=== PATIENT | male | born 1950 | race Caucasian/White ===

== ENCOUNTER → 2018-04-18 | Outpatient (CLI) | payer MEDICARE, OTHER ==
[2018-04-18 11:31] LABS: BASOPHILS ABSOLUTE AUTO 0.04 K/mm3 (0.00-0.23); BASOPHILS PERCENT AUTO 1 % (0-2); EOSINOPHILS PERCENT AUTO 4 % (0-6); Hematocrit 46.4 % (37.0-53.0); Hemoglobin 15.3 g/dL (13.5-17.5); IMMATURE GRAN ABSOLUTE AUTO 0.06 K/mm3 (0.00-0.10); IMMATURE GRAN PERCENT AUTO 1 % (0-1); LYMPHOCYTES ABSOLUTE AUTO 1.34 K/mm3 (0.84-5.20); LYMPHOCYTES PERCENT AUTO 15 % (21-46); MONOCYTES ABSOLUTE AUTO 1.04 K/mm3 (0.16-1.47); MONOCYTES PERCENT AUTO 12 % (4-13); Mean Corpuscular HGB 29.9 pg (26.0-34.0); Mean Corpuscular Volume 91 fL (80-100); Mean Platelet Volume 10.6 fL (9.1-12.4); NEUTROPHILS PERCENT AUTO 68 % (41-73); Platelet Count 233 K/mm3 (150-400); RDW Coefficient Variation 13.5 % (11.7-14.2); RDW Standard Deviation 45.1 fL (35.1-46.3); Red Blood Cell Count 5.12 M/mm3 (4.30-5.90); White Blood Cell Count 8.68 K/mm3 (4.00-11.30)
== END ==
LOC: LAB SHORT 10:49 → LAB UCHC 10:49
PROVIDERS: Internal Medicine Rheumatology
DX: M05.9 Rheumatoid arthritis with rheumatoid factor, unspecified (principal)
CPT/HCPCS: 36415; 84450; 85025; 85651

== ENCOUNTER 2020-06-01 12:32 | Day surgery (SDC) | payer OTHER ==
[~2020-06-01] VITALS: Ht 182.9 cm; Wt 82.6 kg
[~2020-06-01 12:32] MED LIST: AMLO10 PO; BUDESONIDE-FO10.2 G2 INH; Cialis20 MG PO; FAMO20 PO; FLUT.05NI; HYDPAM50 PO; HYDSUL200 PO; NAPR220 PO; PSEU120ER PO; SYMBICORT 160-4.6 GM INH; TIOT18 INH; ZOLP5 PO
[2020-06-01] MEDS ORDERED: VITAMIN D32000 UNI1 (12:54)
[2020-06-01] MEDS ORDERED: ZADITOR5 M1 (12:55)
--- NOTE | 2020-06-01 13:11 | NUR ---
06/01/20 1311 Radha Barnett 1 TRY RIGHT HAND MOVED 2 TRY RIGHT HAND GOOD CML
== END 2020-06-01 14:39 | disposition home or self-care (01) ==
LOC: ORSCSDS 12:32
PROVIDERS: Surgery
PROC: 0DBL8ZX Excision of Transverse Colon, Via Natural or Artificial Opening Endoscopic, Diagnostic (ICD-10-PCS; principal; 2020-06-01 13:45)
PROC: 0DBM8ZX Excision of Descending Colon, Via Natural or Artificial Opening Endoscopic, Diagnostic (ICD-10-PCS; principal; 2020-06-01 13:45)
DX: K62.5 Hemorrhage of anus and rectum (principal); D12.3 Benign neoplasm of transverse colon; D12.4 Benign neoplasm of descending colon; K64.8 Other hemorrhoids; K57.30 Diverticulosis of large intestine without perforation or abscess without bleeding; I10 Essential (primary) hypertension; J44.9 Chronic obstructive pulmonary disease, unspecified; E78.5 Hyperlipidemia, unspecified; F17.210 Nicotine dependence, cigarettes, uncomplicated
CPT/HCPCS: 88305; J2704; J7120

== ENCOUNTER → 2021-07-16 | Outpatient (CLI) | payer OTHER ==
[~2021-07-16] MED LIST changes: +VITAMIN D32000 UNI1; +ZADITOR5 M1
== END | disposition home or self-care (01) ==
LOC: LAB SHORT 17:00
DX: N30.01 Acute cystitis with hematuria (principal)
CPT/HCPCS: 87077; 87086; 87186

== ENCOUNTER → 2021-08-29 | Outpatient (CLI) | payer OTHER | LOC: LAB SHORT 11:32 | DX: D48.5 Neoplasm of uncertain behavior of skin (principal); Q82.8 Other specified congenital malformations of skin | CPT/HCPCS: 88305 ==

== ENCOUNTER → 2022-02-06 | Outpatient (CLI) | payer MEDICARE, OTHER | END | disposition home or self-care (01) | LOC: LAB 08:49 → LAB SHORT 08:49 → PLD 08:49 | DX: D48.5 Neoplasm of uncertain behavior of skin (principal) | CPT/HCPCS: 88305 ==

== ENCOUNTER 2022-05-16 10:56 | Inpatient (IN) | payer OTHER ==
[~2022-05-16] VITALS: Ht 182.9 cm; Wt 82.5 kg
[2022-05-16 11:36] LABS: BASOPHILS ABSOLUTE AUTO 0.03 K/mm3 (0.00-0.23); BASOPHILS PERCENT AUTO 0 % (0-2); EOSINOPHILS PERCENT AUTO 7 % (0-6); Hematocrit 47.7 % (37.0-53.0); IMMATURE GRAN ABSOLUTE AUTO 0.05 K/mm3 (0.00-0.10); IMMATURE GRAN PERCENT AUTO 1 % (0-1); LYMPHOCYTES ABSOLUTE AUTO 0.78 K/mm3 (0.84-5.20); LYMPHOCYTES PERCENT AUTO 11 % (21-46); MONOCYTES ABSOLUTE AUTO 0.69 K/mm3 (0.16-1.47); MONOCYTES PERCENT AUTO 9 % (4-13); Mean Corpuscular HGB 32.3 pg (26.0-34.0); Mean Corpuscular HGB Conc 33.5 g/dL (31.5-36.5); Mean Corpuscular Volume 96 fL (80-100); Mean Platelet Volume 9.9 fL (9.1-12.4); NEUTROPHILS ABSOLUTE AUTO 5.41 K/mm3 (1.96-9.15); NEUTROPHILS PERCENT AUTO 73 % (41-73); Platelet Count 188 K/mm3 (150-400); RDW Coefficient Variation 13.8 % (11.7-14.2); RDW Standard Deviation 49.1 fL (35.1-46.3); Red Blood Cell Count 4.96 M/mm3 (4.30-5.90); White Blood Cell Count 7.46 K/mm3 (4.00-11.30)
[2022-05-16 11:57] LABS: Albumin, Blood 3.8 g/dL (3.4-5.0); Albumin/Globulin Ratio 1.2 (0.8-1.8); Bilirubin, Total 0.5 mg/dL (0.1-1.0); Bun/Creatinine Ratio 20.1 (12.0-20.0); Calcium, Blood 9.5 mg/dL (8.5-10.1); Creatinine, Blood 0.84 mg/dL (0.60-1.20); Globulin, Blood 3.3 g/dL (2.2-4.0); Potassium, Blood 4.5 mmol/L (3.5-5.5); Total Protein, Blood 7.1 g/dL (6.4-8.2)
[2022-05-16] MEDS ORDERED: GUAI600T33 PO (11:59)
[2022-05-16 12:01] LABS: Influenza A, PCR NEGATIVE (NEGATIVE); Influenza B, PCR NEGATIVE (NEGATIVE); Resp Syncytial Virus, PCR NEGATIVE (NEGATIVE); SARS-Cov-2 (COVID-19) PCR, MMC NEGATIVE (NEGATIVE)
[2022-05-16] MEDS ORDERED: LOSA25 PO (12:01)
[2022-05-16] MEDS ORDERED: TIOT18 INH (12:01)
[2022-05-16] MEDS ORDERED: FLUT1DIS5 INH (12:01)
[2022-05-16] MEDS ORDERED: ACET325 PO (12:01)
[2022-05-16] MEDS ORDERED: TADA10TA (12:02)
[2022-05-16] MEDS ORDERED: AZIT250 PO (13:06)
[2022-05-16] MEDS ORDERED: CEFP200 PO (13:06)
[2022-05-16 16:03] LABS: Base Excess Venous 5.4 mmol/L; Bicarbonate Venous 26.9 mmol/L (24.0-30.0); PCO2 Venous 64.3 mmHg (38-42)
--- NOTE | 2022-05-16 18:00 | NUR ---
RECIEVED REPORT FROM HIM ANALYSTMELISA FUNES REGARDING PATIENT ADMITTED TO MEDICAL UNIT. PATIENT ARRIVED TO ROOM 357 VIA WHEELCHAIR AROUND 1715 WITH TH DX OF COPD EXACERBATION. PATIENT TRANSFERRED TO BED WITH SBA AND AMBULATES TO BATHROOM WITH NO DEVICES NEEDED PER PATIENT REQUEST. PATIENT ON O2 3L VIA NC. LUNGS WHEEZES T/O. DENIES SOB, CP/CHEST DISCOMFORT. PATIENT COUGH OCCASIONALLY. PATIENT REPORTS COUGHS HAS BEEN DRY AND NONPRODUCTIVE ALL DAY. VITAL SIGNS REVIEWED. ORIENT TO ROOM AND CALL SYSTEM. BED IN LOWEST POSITION LOCKED AND CALL LIGHT WITHIN REACH.
[2022-05-17 04:48] LABS: Hematocrit 43.6 % (37.0-53.0); Hemoglobin 14.3 g/dL (13.5-17.5); Mean Corpuscular HGB 31.6 pg (26.0-34.0); Mean Corpuscular HGB Conc 32.8 g/dL (31.5-36.5); Mean Corpuscular Volume 96 fL (80-100); Mean Platelet Volume 10.2 fL (9.1-12.4); Platelet Count 167 K/mm3 (150-400); RDW Coefficient Variation 13.7 % (11.7-14.2); RDW Standard Deviation 48.8 fL (35.1-46.3); Red Blood Cell Count 4.53 M/mm3 (4.30-5.90)
[2022-05-17 05:04] LABS: Calcium, Blood 8.9 mg/dL (8.5-10.1); Creatinine, Blood 0.79 mg/dL (0.60-1.20); Magnesium, Blood 1.9 mg/dL (1.6-2.4); Potassium, Blood 4.8 mmol/L (3.5-5.5)
--- NOTE | 2022-05-17 05:59 | NUR ---
SUMMARY: PT A/OX4 AND IS PLEASANT AND COOPERATIVE W/CARE. HE'S INDEPENDENT/SBA IN ROOM TO MANAGE LINES BUT IS AWARE OF LIMITATIONS SO CALLS APPROPRIATELY TO SPECIFY NEEDS. HE CONT'S TO WHEEZE W/TIGHT LS AND REMAINS ON 3L O2 TO MAINTAIN SPO2 WNL. MILD SOB NOTED UPON EXERTION AND OCC HARSH DRY COUGH PERSISTS. RT PROVIDED BX TX'S AND IV SOLUMEDROL, GUAIFENESIN AND ABX BEING RECIEVEV FOR COPD EXACERBATION. HE'S DENIED PAIN AND ALL OTHER COMPLAINTS AND USES URINAL AT EOB. NO ACUTE CHANGES, VSS AND AFEBRILE. WCTM AND REPORT TO DAY RN.
--- NOTE | 2022-05-17 17:32 | NUR ---
SUMMARY- PT IS A/O X4, INDEPENDANT IN ROOM. USING FLUTTER VALVE FREQ. ROUTINE NEBS HELPFUL. PT HAS HARSH, BARKING COUGH. STATES YELLOW PHLEGM. O2 3L NC, 93% SATS, ROOM AIR AT HOME. PT'S LUNGS DIM IN THE BASES AND LOUD EXP WHEEZE T/O. USING REBEKAH HOSE ARMS AND LEGS. NAPROXIN AND PLAQUINIL SCHEDULED FOR RA. HAS BEEN IN THE ROOM MOST OF THE DAY, INVOLVED IN PT'S CARE. WILL REPORT TO NAVYA VINCENT.
[2022-05-18 04:49] LABS: Base Excess Venous 5.5 mmol/L; Bicarbonate Venous 28.3 mmol/L (24.0-30.0); PCO2 Venous 49.4 mmHg (38-42)
[2022-05-18 04:52] LABS: BASOPHILS PERCENT AUTO 0 % (0-2); EOSINOPHILS PERCENT AUTO 0 % (0-6); Hematocrit 43.1 % (37.0-53.0); Hemoglobin 14.3 g/dL (13.5-17.5); IMMATURE GRAN ABSOLUTE AUTO 0.05 K/mm3 (0.00-0.10); IMMATURE GRAN PERCENT AUTO 1 % (0-1); LYMPHOCYTES ABSOLUTE AUTO 0.29 K/mm3 (0.84-5.20); LYMPHOCYTES PERCENT AUTO 3 % (21-46); MONOCYTES ABSOLUTE AUTO 0.29 K/mm3 (0.16-1.47); MONOCYTES PERCENT AUTO 3 % (4-13); Mean Corpuscular HGB 31.6 pg (26.0-34.0); Mean Corpuscular HGB Conc 33.2 g/dL (31.5-36.5); Mean Corpuscular Volume 95 fL (80-100); NEUTROPHILS ABSOLUTE AUTO 8.49 K/mm3 (1.96-9.15); NEUTROPHILS PERCENT AUTO 93 % (41-73); Platelet Count 164 K/mm3 (150-400); RDW Coefficient Variation 13.8 % (11.7-14.2); RDW Standard Deviation 48.6 fL (35.1-46.3); Red Blood Cell Count 4.52 M/mm3 (4.30-5.90); White Blood Cell Count 9.12 K/mm3 (4.00-11.30)
[2022-05-18 05:24] LABS: Bun/Creatinine Ratio 34.7 (12.0-20.0); Calcium, Blood 8.6 mg/dL (8.5-10.1); Creatinine, Blood 0.98 mg/dL (0.60-1.20); Potassium, Blood 4.6 mmol/L (3.5-5.5)
--- NOTE | 2022-05-18 07:42 | NUR ---
NOC SHIFT SUMMARY PT ADMITTED/RECEIVING TX FOR COPD EXACERBATION. COARSE LUNG SOUNDS THROUGHOUT. FLUTTER VALVE UTILIZED VIGOROUSLY THROUGHOUT SHIFT. PT AAOX4. IV STEROIDS + PO ABX. NO ISSUES NOTED.
--- NOTE | 2022-05-18 18:24 | NUR ---
SHIFT SUMMARY A&O X 4. VSS. COOPERATIVE AND PLEASANT WITH ALL CARE. IS DILIGENTLY USING HIS FLUTTER VALVE DEVICE INSTRUCTED. MD MADE AWARE OF INCREASED REDNESS OF SKIN ON HIS BACK AND ARMS. RECEIVED ORDERS TO DC HIS AZITHROMYCIN. IS INDEPENDENT IN HIS ROOM FOR RESTROOM USE. APPETITE IS GOOD. DENIES SIGNIFICANT BREATHING PROBLEMS. HAS A STRONG PRODUCTIVE COUGH. IS IN GOOD SPIRITS AND IS USING HIS SENSE OF HUMOR. CALL LIGHT WITHIN REACH AND USES IT APPROPRIATELY.
--- NOTE | 2022-05-18 19:00 | NUR ---
PT WAS REQUESTING A DINNER TRAY FROM NAVYA ALVAREZ MANAGER STRATEGIC SOURCING ASSIGNED TO ROOM 357. THE PATIENT STATED THAT HE HAD NOT YET RECIEVED ONE. I OVERHRAED THIS CONVERSATION AND SUGGESTED THAT WE LOOK AT THE "COMPLETED TRAY CART". A TRAY WITH HIS NAME WAS LOCATED, BUT WAS COMPLETELY EMPTY, INDICATING THAT ALL THE CONTENTS WERE CONSUMED. AFTER REVIEW OF CHART DOCUMENTATION, NO INTAKE WAS RECORDED FOR DINNER. THE PT WAS EXTREMELY UPSET, RIGHTFULLY SO, IT HAD BEEN SEVERAL HOURS SINCE HE HAD LAST CONSUMED ANY FOOD. THIS RN ATTEMPTED TO CALL FOOD SERVICES FOR A DINNER TRAY; HOWEVER, THERE WAS NO ANSWER, BILL SORTER ENDS BEFORE 1900. THIS INCIDENT, ALONG WITH SEVERAL OTHER INCIDENTS INVOLVING THE SAME DAYSHIFT MANAGER STRATEGIC SOURCING, WAS REPORTED TO THE CHARGE NURSE ON DUTY. THE SITUATION WAS SOMEWHAT RESOLVED AFTER A SANDWHICH WAS BROUGHT TO THE PATIENT (WHICH WAS OFFERED BY ANTONIO)
--- NOTE | 2022-05-19 06:19 | NUR ---
NOC SHIFT SUMMARY REFER TO PREVIOUS NOTE FOR ISSUES EARLY ON DURING SHIFT. PT'S LUNGS STILL SOUND COARSE THROUGHOUT. FLUTTER VALVE USED ROUTINELY THROUGHOUT THE NIGHT. PER PT, WILL BE HERE UNTIL AT LEASET SUNDAY. PT ALWAYS WAS PLEASENT AND COOPERATIVE.
--- NOTE | 2022-05-19 18:29 | NUR ---
SHIFT SUMMARY A&O X 4. VSS. PT CONTINUES TO DILIGENTLY USE HIS FLUTTER VALVE. HAS A GOOD STRONG PRODUCTIVE COUGH. IS INDEPENDENT IN THE ROOM FOR RESTROOM USE. HOME O2 EVAL DONE TODAY AND HE WILL NEED HOME O2. ARRANGEMENTS HAVE BEEN MADE BY [facility] SPECIALIST FOR HIM TO RECEIVE O2 SERVICES VIA [facility] [place] UPON ANTICIPATED DC HOME ON SUNDAY.
--- NOTE | 2022-05-20 04:49 | NUR ---
CORPORATE OFFICER SUMMARY NO ACTUE CHANGES. PT A/OX4, INDEPENDENT IN ROOM, PLEASANT AND COOPERATIVE WITH CARE. PT REMAINS ON 3L O2 NC. CALLS APPROPRIATELY AND ABLE TO ADVOCATE FOR NEEDS. PT C/O GAS/BELCHING AND INDIGESTION; CALLED DR HINES--NEW ORDER FOR PRN TUMS 500-1000MG. CALL LIGHT IN REACH.
--- NOTE | 2022-05-20 17:53 | NUR ---
SHIFT SUMMARY: NO ACUTE CHANGES THIS SHIFT. PATIENT A&OX4. PLEASANT AND COOPERATIVE WITH CARE. USES CALL LIGHT APPROPRIATELY. AMBULATES IN ROOM INDEPENDENTLY. PATIENT USES O2 3L VIA NC WITH SPO2 ABOVE 90%. PLAN TO DISCHARGE HOME TOMORROW 05/21/22. CALLED TO [facility] THIS AM AND SPOKE TO MAXWELL WITH REGARDS TO PT HOME O2. O2 CONCENTRATOR WAS DILIVERED TO PATIENT HOUSE AND PORTABLE O2 WAS DILIVERED TO PATIENT ROOM THIS PM. VITAL SIGNS REVIEWED. BED IN LOWEST POSITION, LOCKED AND CALL LIGHT IN REACH.
--- NOTE | 2022-05-21 06:15 | NUR ---
CIA AGENT SUMMARY NO ACUTE CHANGES. PT REMAINS PLEASANT AND COOPERATIVE WITH CARE. EXPRESSED EXCITMENT ABOUT D/C HOME IN THE MORNING. PT STATED HIS CHEST/BREATHS FELT A LITTLE TIGHTER. LUNG TILLMAN ARE COARSE AND WEEZY T/O. PT DENIED BEING SOB OR CHEST PAIN. PT ABLE TO ADVOCATE FOR SELF. CALL LIGHT IN REACH.
[2022-05-21] MEDS ORDERED: IPRAT-ALBUT 0.5-3 ML INH (10:45)
[2022-05-21] MEDS ORDERED: PRED20 PO (10:46)
--- NOTE | 2022-05-21 12:37 | NUR ---
SUMMARY: NO ACUTE CHANGES. PATIENT A&OX4. USES O2 2.5L VIA NC. PATIENT MAINTAINING SPO2 ABOVE 92%. DENIES SOB. DENIES CP/CHEST DISCOMFORT. AMBULATES IN ROOM INDEPENDENTLY. USES CALL LIGHT APPRORIATELY AND ABLE TO ADVOCATE FOR HIS NEEDS. PATIENT RECIEVED ALL SCHEDULE AM MEDS PER EMAR. VITAL SIGNS REVIEWED. PATIENT DISCHARGE HOME. DISCHARGE INSTRUCTIONS PACKET GIVEN TO PT. EDUCATE PATIENT REGARDING ADMITTING DIAGNOSIS, SIGN AND SYMPTOMS, TREATMENT REGIMEN AND NEW PRESCRIBED MEDICATION. PATIENT STATED UNDERSTANDING AND NO FURTHER QUESTIONS. RX WAS FAXED TO PATIENT PREFERRED PHARMACY ([facility]). ALL PATIENT PERSONAL BELONGINGS WERE SENT HOME WITH THE PATIENT. IV WAS DC'D THIS AM. PATIENT WAS TRANSPORTED VIA WHEELCHAIR BY COAL DIGGER STAFF TO THE PATIENT SPOUSE PRIVATE VEHICLE.
== END 2022-05-21 12:22 | disposition home health service (06) | DRG 189 ==
LOC: ER 10:56 → MEDS 14:35
PROVIDERS: Emergency Medicine; Internal Medicine; Nurse Practitioner Acute Care; ADMIT Internal Medicine
DX: J96.01 Acute respiratory failure with hypoxia (principal); J44.1 Chronic obstructive pulmonary disease with (acute) exacerbation; E44.0 Moderate protein-calorie malnutrition; M06.9 Rheumatoid arthritis, unspecified; Z85.46 Personal history of malignant neoplasm of prostate; K21.9 Gastro-esophageal reflux disease without esophagitis; F41.9 Anxiety disorder, unspecified; Z20.822 Contact with and (suspected) exposure to COVID-19; Z98.890 Other specified postprocedural states; Z98.49 Cataract extraction status, unspecified eye; Z79.899 Other long term (current) drug therapy; Z88.2 Allergy status to sulfonamides; Z88.6 Allergy status to analgesic agent; F12.10 Cannabis abuse, uncomplicated; J96.02 Acute respiratory failure with hypercapnia; Z68.25 Body mass index [BMI] 25.0-25.9, adult
CPT/HCPCS: 0241U; 36415; 71045; 80048; 80053; 82803; 83735; 83880; 84145; 84153; 84484; 85025; 85027; 87070; 87205; 93005; 93010; 94640; 94644; 94664; 94760; 94761; 96365; 96375; 99285-25; A9270; J0456; J0696; J1650; J2930; J7050; J7512

== ENCOUNTER 2022-06-25 11:42 | Emergency (ER) | payer OTHER ==
[~2022-06-25] VITALS: Ht 182.9 cm; Wt 83.9 kg
[~2022-06-25 11:42] MED LIST changes: +ACET325 PO; +AZIT250 PO; +CEFP200 PO; +FLUT1DIS5 INH; +GUAI600T33 PO; +IPRAT-ALBUT 0.5-3 ML INH; +LOSA25 PO; +PRED20 PO; +TADA10TA
[2022-06-25 14:35] LABS: Base Excess Venous 6.4 mmol/L; Bicarbonate Venous 28.7 mmol/L (24.0-30.0); PCO2 Venous 53.6 mmHg (38-42); pH Blood Venous 7.38 (7.34-7.37)
[2022-06-25 14:41] LABS: BASOPHILS ABSOLUTE AUTO 0.04 K/mm3 (0.00-0.23); BASOPHILS PERCENT AUTO 0 % (0-2); EOSINOPHILS ABSOLUTE AUTO 0.66 K/mm3 (0.00-0.68); EOSINOPHILS PERCENT AUTO 6 % (0-6); Hematocrit 45.6 % (37.0-53.0); Hemoglobin 15.1 g/dL (13.5-17.5); IMMATURE GRAN ABSOLUTE AUTO 0.13 K/mm3 (0.00-0.10); IMMATURE GRAN PERCENT AUTO 1 % (0-1); LYMPHOCYTES ABSOLUTE AUTO 1.59 K/mm3 (0.84-5.20); LYMPHOCYTES PERCENT AUTO 14 % (21-46); MONOCYTES ABSOLUTE AUTO 1.19 K/mm3 (0.16-1.47); MONOCYTES PERCENT AUTO 10 % (4-13); Mean Corpuscular HGB 31.1 pg (26.0-34.0); Mean Corpuscular HGB Conc 33.1 g/dL (31.5-36.5); Mean Corpuscular Volume 94 fL (80-100); Mean Platelet Volume 10.2 fL (9.1-12.4); NEUTROPHILS ABSOLUTE AUTO 8.04 K/mm3 (1.96-9.15); NEUTROPHILS PERCENT AUTO 69 % (41-73); Platelet Count 216 K/mm3 (150-400); RDW Coefficient Variation 14.6 % (11.7-14.2); RDW Standard Deviation 50.4 fL (35.1-46.3); Red Blood Cell Count 4.85 M/mm3 (4.30-5.90); White Blood Cell Count 11.65 K/mm3 (4.00-11.30)
[2022-06-25] MEDS ORDERED: PRED20 PO ×2 (14:52→15:52)
[2022-06-25] MEDS ORDERED: DOXY100 PO ×2 (14:52→15:52)
[2022-06-25 15:03] LABS: Albumin, Blood 3.6 g/dL (3.4-5.0); Albumin/Globulin Ratio 1.2 (0.8-1.8); Bilirubin, Total 0.6 mg/dL (0.1-1.0); Bun/Creatinine Ratio 28.8 (12.0-20.0); Calcium, Blood 9.2 mg/dL (8.5-10.1); Creatinine, Blood 0.9 mg/dL (0.60-1.20); Globulin, Blood 3.1 g/dL (2.2-4.0); Potassium, Blood 4.1 mmol/L (3.5-5.5); Total Protein, Blood 6.7 g/dL (6.4-8.2)
[2022-06-25] MEDS ORDERED: IPRAT-ALBUT 0.5-3 ML INH (15:52)
== END 2022-06-25 16:47 | disposition home or self-care (01) ==
LOC: ER 11:42
PROVIDERS: Physician Assistant; Student in an Organized Health Care Education/Training Program
DX: J44.1 Chronic obstructive pulmonary disease with (acute) exacerbation (principal); F17.210 Nicotine dependence, cigarettes, uncomplicated; Z99.81 Dependence on supplemental oxygen; Z88.0 Allergy status to penicillin; Z88.6 Allergy status to analgesic agent; Z88.2 Allergy status to sulfonamides; Z88.8 Allergy status to other drugs, medicaments and biological substances; Z79.899 Other long term (current) drug therapy
CPT/HCPCS: 36415; 71046; 80053; 82803; 85025; 93005; 93010; 94640; 94644; 94664; A9270; J7512

== ENCOUNTER 2023-03-13 14:23 | Inpatient (IN) | payer OTHER | END 2023-03-18 16:56 | disposition home health service (06) | DRG 871 | LOC: ER 14:23 → MEDS 18:45 | PROVIDERS: ADMIT Hospitalist | DX: A41.9 Sepsis, unspecified organism (principal); I21.A1 Myocardial infarction type 2; L03.115 Cellulitis of right lower limb; E87.29 Other acidosis; L97.929 Non-pressure chronic ulcer of unspecified part of left lower leg with unspecified severity; L97.919 Non-pressure chronic ulcer of unspecified part of right lower leg with unspecified severity; I10 Essential (primary) hypertension; L98.499 Non-pressure chronic ulcer of skin of other sites with unspecified severity; J44.9 Chronic obstructive pulmonary disease, unspecified; M06.9 Rheumatoid arthritis, unspecified; R65.20 Severe sepsis without septic shock; Z51.5 Encounter for palliative care; E83.51 Hypocalcemia; M54.9 Dorsalgia, unspecified; F10.20 Alcohol dependence, uncomplicated; K21.9 Gastro-esophageal reflux disease without esophagitis; F41.9 Anxiety disorder, unspecified; Z85.46 Personal history of malignant neoplasm of prostate; Z87.891 Personal history of nicotine dependence; Z98.1 Arthrodesis status; Z98.890 Other specified postprocedural states; Z88.0 Allergy status to penicillin; Z88.8 Allergy status to other drugs, medicaments and biological substances; Z79.51 Long term (current) use of inhaled steroids; Z79.899 Other long term (current) drug therapy; Z99.81 Dependence on supplemental oxygen ==

== ENCOUNTER 2023-03-20 09:59 | Inpatient (IN) | payer OTHER ==
[~2023-03-20] VITALS: Ht 182.9 cm; Wt 80.3 kg
[~2023-03-20 09:59] MED LIST changes: +BENADRYL25 MG PO; +CEPH500 PO; +DOXY100 PO; +FLUT1DIS8 INH; +Prednisone10 M1 PO; +Prednisone50 MG PO; +TORSE20 PO
[2023-03-20 10:36] LABS: BASOPHILS ABSOLUTE AUTO 0.03 K/mm3 (0.00-0.23); BASOPHILS PERCENT AUTO 0 % (0-2); EOSINOPHILS ABSOLUTE AUTO 0.03 K/mm3 (0.00-0.68); EOSINOPHILS PERCENT AUTO 0 % (0-6); Hematocrit 37.3 % (37.0-53.0); IMMATURE GRAN ABSOLUTE AUTO 0.32 K/mm3 (0.00-0.10); IMMATURE GRAN PERCENT AUTO 2 % (0-1); LYMPHOCYTES ABSOLUTE AUTO 0.89 K/mm3 (0.84-5.20); LYMPHOCYTES PERCENT AUTO 4 % (21-46); MONOCYTES ABSOLUTE AUTO 0.95 K/mm3 (0.16-1.47); MONOCYTES PERCENT AUTO 5 % (4-13); Mean Corpuscular HGB 29.4 pg (26.0-34.0); Mean Corpuscular HGB Conc 32.2 g/dL (31.5-36.5); Mean Corpuscular Volume 91 fL (80-100); Mean Platelet Volume 10.6 fL (9.1-12.4); NEUTROPHILS ABSOLUTE AUTO 17.96 K/mm3 (1.96-9.15); NEUTROPHILS PERCENT AUTO 89 % (41-73); Platelet Count 252 K/mm3 (150-400); RDW Coefficient Variation 13.5 % (11.7-14.2); RDW Standard Deviation 45.4 fL (35.1-46.3); Red Blood Cell Count 4.08 M/mm3 (4.30-5.90); White Blood Cell Count 20.18 K/mm3 (4.00-11.30)
[2023-03-20 10:47] LABS: Bun/Creatinine Ratio 38.7 (12.0-20.0); Calcium, Blood 8.5 mg/dL (8.5-10.1); Creatinine, Blood 1.73 mg/dL (0.60-1.20); Potassium, Blood 3.9 mmol/L (3.5-5.5)
[2023-03-20 11:35] LABS: Base Excess Venous 10.9 mmol/L; PCO2 Venous 60.7 mmHg (38-42); pH Blood Venous 7.38 (7.34-7.37)
--- NOTE | 2023-03-20 14:19 | NUR ---
REPORT RECEIVED FROM HERMILA IN ER. AWAITING PT ARRIVAL AT THIS TIME
[2023-03-20 14:43] VITALS: BP 120/76
[2023-03-20] MEDS ORDERED: LOSA25 PO (14:59)
[2023-03-20] MEDS ORDERED: BANOPHEN25 MG PO (15:01)
[2023-03-20] MEDS ORDERED: GUAI600T33 PO (15:02)
[2023-03-20 16:31] VITALS: BP 99/54
--- NOTE | 2023-03-20 16:57 | NUR ---
SHIFT SUMMARY PT AXO, PLEASANT AND COOPERATIVE WITH CARE. ADMITTED TO ROOM 306. PT ARRIVED VIA GURNEY AT 1430 AND STOOD AND WALKED INTO BATHROOM TO VOID. ADMISSION COMPLETED. PT AND DAUGHTER STATE THAT THEY ACCIDENTALLY GAVE PATIENT LOSARTAN AT HOME DESPITE IT BEING DISCONTINUED UPON LAST DISCHARGE BECAUSE THEY GOT CONFUSED ABOUT THE NAME OF THE MEDICATION ON THE LIST BEING COZAR. IV PATENT AND INFUSING PER EMAR. DRESSINGS CHANGED, PHOTOS TAKEN. PT ON 2L, 98% VIA NC. EGG CRATE MATTRESS APPLIED TO PT BED FOR COMFORT. PT MEDICATED PER EMAR FOR PAIN. PT NOT ABLE TO WEAR SCD'S R/T LEG WOUNDS. PT ALSO WISHES TO BE DNR, DR. CHESTER NOTIFIED. BED IN LOW POSITION, CALL LIGHT WITHIN REACH. PT'S DAUGHTER AT BEDSIDE.
[2023-03-21 04:31] VITALS: BP 112/61
[2023-03-21 05:07] LABS: Albumin/Globulin Ratio 0.6 (0.8-1.8); Bilirubin, Total 0.3 mg/dL (0.1-1.0); Bun/Creatinine Ratio 46.1 (12.0-20.0); Calcium, Blood 8.3 mg/dL (8.5-10.1); Creatinine, Blood 1.28 mg/dL (0.60-1.20); Globulin, Blood 3.2 g/dL (2.2-4.0); Potassium, Blood 3.8 mmol/L (3.5-5.5); Total Protein, Blood 5.2 g/dL (6.4-8.2)
--- NOTE | 2023-03-21 05:33 | NUR ---
SHIFT SUMMARY MR GARCIA TOOK OXY FOR BACK PAIN AT 2200HRS AND THIS MORNING SAID THAT HIS BACK PAIN IS "NOT BAD". HE REPORTS THAT HIS BREATHING FEELS MUCH THE SAME, STILL SOB ON EXERTION ON 2L N/C OVERNIGHT. HE SAID THAT HE WAS ABLE TO EXPECTORATE OVERNIGHT. TELEMETRY SR/ST AROUND 100 FOR MOST OF THE NIGHT. NO CALLS FROM THE DIRECTOR ADVANCED. BED LOW, CALL LIGHT IN REACH.
[2023-03-21 07:35] VITALS: BP 138/85
[2023-03-21 16:12] VITALS: BP 139/78
--- NOTE | 2023-03-21 16:21 | NUR ---
Upon receiving a referral for spiritual care, I visited the patient. He immediately tells me about the of his spouse, Angelia, on 03/10/23. He shares about the good memories, the family support he has and the pain and brutal struggles of a 31 yr esquivel with cancer. We discuss his spiritual distress, his anger, his medical issues and his current needs (as his family leave tomorrow). We talk about ways to bereave in healthy ways and the things that he may experience going forward. I normalize his feelings and fears, explore sources of meaning and purpose and provide therapeutic listening and prayer. Patient responded well and showed signs of being comforted in his grief. I will continue to remain available.
[2023-03-21 19:36] VITALS: BP 126/73
[2023-03-21 20:08] VITALS: BP 139/56
[2023-03-21 20:10] VITALS: BP 139/56
--- NOTE | 2023-03-21 20:51 | NUR ---
Walked into patient room due to bathroom alarm going off. Patient was on the toilet alert and oriented. Patient said that they fell over on the toilet and managed to get back on and pull the bathroom alarm. The RN was immediately notified. Cleaned patients bottom and assisted patient onto their bed. Vitals were then taken. RN stayed in room
[2023-03-22 04:27] VITALS: BP 107/57
[2023-03-22 05:00] LABS: Hematocrit 32.8 % (37.0-53.0); Hemoglobin 10.9 g/dL (13.5-17.5); Mean Corpuscular HGB Conc 33.2 g/dL (31.5-36.5); Mean Corpuscular Volume 90 fL (80-100); Mean Platelet Volume 10.6 fL (9.1-12.4); Platelet Count 255 K/mm3 (150-400); RDW Coefficient Variation 13.2 % (11.7-14.2); RDW Standard Deviation 44.4 fL (35.1-46.3); Red Blood Cell Count 3.63 M/mm3 (4.30-5.90); White Blood Cell Count 12.56 K/mm3 (4.00-11.30)
[2023-03-22 05:21] LABS: BAND PERCENT MAN 6 % (0-8); BASOPHILS PERCENT MAN 0 % (0-2); EOSINOPHILS PERCENT MAN 0 % (0-6); MONOCYTES ABSOLUTE MAN 0.12 K/mm3 (0.16-1.47); MONOCYTES PERCENT MAN 1 % (4-13); NEUTROPHILS ABSOLUTE MAN 12.43 K/mm3 (1.96-9.15); SEG NEUTROPHILS PERCENT MAN 93 % (41-73); TOTAL CELLS COUNTED 100
[2023-03-22 05:30] LABS: Albumin, Blood 1.9 g/dL (3.4-5.0); Albumin/Globulin Ratio 0.6 (0.8-1.8); Bilirubin, Total 0.3 mg/dL (0.1-1.0); Bun/Creatinine Ratio 48.5 (12.0-20.0); Calcium, Blood 8.4 mg/dL (8.5-10.1); Creatinine, Blood 1.03 mg/dL (0.60-1.20); Globulin, Blood 3.2 g/dL (2.2-4.0); Potassium, Blood 3.9 mmol/L (3.5-5.5); Total Protein, Blood 5.1 g/dL (6.4-8.2)
--- NOTE | 2023-03-22 06:26 | NUR ---
SHIFT SUMMARY PT REPORTED HE FELL IN THE BATHROOM AT 1935. DENIES ANY INJURIES. PT STATED HE JUST SLIPPEED OFF THE TOILET AND USED HIS ARMS AGAINST THE WALL TO HELP LOWER HIMSELF TO THE GROUND. DARIEL RODARTE NOTIFIED NO NEW ORDERS. 2L NC. PRN PAIN MEDICATION GIVEN WITH POSITIVE EFFECT. [facility] BUT NOW IS AGREEABLE AND IS NOW CALLING APPROPRITATELY. Q1H FIRE SAFETY CHECKS COMPLETED, NO IGNITION SOURCES FOUND.
[2023-03-22 07:21] VITALS: BP 143/62
--- NOTE | 2023-03-22 16:29 | NUR ---
SHIFT SUMMARY- PT IS A/O, FEDERICO AND ALY. WORKED WITH PT AND OT THIS SHIFT. DAUGHTER AT BEDSIDE THIS SHIFT. HE IS EATING AND DRINKING WELL. SLEPT INTERMITENTLY. RECIEVED PAIN MEDICATIONS PRN. KIDNEY FUNCTION IMPROVING. RECIVING BREATHING TREATMENTS PER RT. HIS BED IS IN THE LOW POSITON AND CALL LIGHT IS CHIP INFANTE.
[2023-03-22 16:53] VITALS: BP 150/79
[2023-03-22 19:59] VITALS: BP 138/88
[2023-03-23] VITALS (25 sets, daily range): BP systolic 118–162; BP diastolic 70–99
[2023-03-23 05:06] LABS: BASOPHILS ABSOLUTE AUTO 0.01 K/mm3 (0.00-0.23); BASOPHILS PERCENT AUTO 0 % (0-2); EOSINOPHILS PERCENT AUTO 0 % (0-6); Hematocrit 33.9 % (37.0-53.0); Hemoglobin 11.2 g/dL (13.5-17.5); IMMATURE GRAN ABSOLUTE AUTO 0.15 K/mm3 (0.00-0.10); IMMATURE GRAN PERCENT AUTO 1 % (0-1); LYMPHOCYTES ABSOLUTE AUTO 0.14 K/mm3 (0.84-5.20); LYMPHOCYTES PERCENT AUTO 1 % (21-46); MONOCYTES ABSOLUTE AUTO 0.48 K/mm3 (0.16-1.47); MONOCYTES PERCENT AUTO 4 % (4-13); Mean Corpuscular HGB 29.7 pg (26.0-34.0); Mean Corpuscular Volume 90 fL (80-100); Mean Platelet Volume 10.5 fL (9.1-12.4); NEUTROPHILS ABSOLUTE AUTO 11.48 K/mm3 (1.96-9.15); NEUTROPHILS PERCENT AUTO 94 % (41-73); Platelet Count 273 K/mm3 (150-400); RDW Coefficient Variation 13.3 % (11.7-14.2); RDW Standard Deviation 43.9 fL (35.1-46.3); Red Blood Cell Count 3.77 M/mm3 (4.30-5.90); White Blood Cell Count 12.26 K/mm3 (4.00-11.30)
[2023-03-23 06:12] LABS: Albumin, Blood 1.8 g/dL (3.4-5.0); Albumin/Globulin Ratio 0.6 (0.8-1.8); Bilirubin, Total 0.3 mg/dL (0.1-1.0); Bun/Creatinine Ratio 45.2 (12.0-20.0); Calcium, Blood 8.7 mg/dL (8.5-10.1); Creatinine, Blood 0.95 mg/dL (0.60-1.20); Globulin, Blood 3.2 g/dL (2.2-4.0); Potassium, Blood 4.1 mmol/L (3.5-5.5)
--- NOTE | 2023-03-23 07:21 | NUR ---
PT SITTING UP TO SIDE OF BED DURING BEDSIDE REPORT- PT TOOK SCHEDULED MEDS WITHOUT PROBLEMS, PT REPORTED CONSTIPATION FOR 2 DAYS AND TOOK STOOL SOFTNERS AND NOW IS HAVING SEVERAL LOOSE STOOLS, PT REPORTS INTERMITTEN ABD PAIN- PT REQUESTED PAIN MEDICINE X 2- PT AWAKENED FOR SOLU MEDROL THIS AM AND C/O OF 9/10 WORSE ABD PAIN HE HAS HAD PER PT- PHONE CALL TO DR. SORENSON -NEW ORDER FOR ABD XRAY AND MAALOX, GAVE MAALOX - NOTIFIED PT- PT REPORTED PAIN DOWN TO 5/10 SINCE OXYCODONE THIS AM- PT SITTING UP TO SIDE OF BED- BED LOW POSITION, CALL LIGHT WITHIN REACH
--- NOTE | 2023-03-23 08:16 | NUR ---
PT C/O 05/22 ABDOMINAL PAIN. ABLE TO MOVE SELF WITH MIN ASSIST TO THE WHEELCHAIR FOR TRANSPORT TO RADIOLOGY DEPT FOR X-RAY. CALLED AND DISCUSSED WITH HOSPITALIST, ORDER RECEIVED FOR DILAUDID 0.5 MG IV ONE TIME. HOSPITALIST STATED WILL ADD LABS.
--- NOTE | 2023-03-23 15:12 | NUR ---
DR. KATZ CONSULTED WITH PT AT BEDSIDE. PT AGREEABLE TO SURGICAL INTERVENTION. DAY SURGERY CALLED THIS RN AND STATED PT WILL BE PICKED UP AND TRANSPORTED TO DAY SURGERY SHORTLY. PT DID NOT EAT BREAKFAST OR LUNCH, HAS BEEN NPO OTHER THAN SIPS OF WATER AND MEDICATIONS. PT NOTIFYING HIS FAMILY BY PHONE.
--- NOTE | 2023-03-23 15:37 | NUR ---
PT TRANSPORTED TO DAY SURGERY BY SURGICAL STAFF. PERSONAL BELONGINGS INCLUDING PHONE, EQUIP TECH, GLASSES, ETC, REMAIN IN PT ROOM.
--- NOTE | 2023-03-23 16:30 | NUR ---
03/23/23 1630 Hira Baker I PATIENT RECEIVED MEROPENEM PREOPERATIVELY ACCORDING TO THE SCHEDULED DICTATED IN THE PATIENT'S EMAR. SCDS WERE NOT PLACED ON THE PT INTRAOPERATIVELY ORDERED PER THE PROVIDER.
--- NOTE | 2023-03-23 18:18 | NUR ---
REPORT GIVEN TO ICU NURSE. PT'S BELONGINGS AND MEDICATIONS TAKEN TO ICU 8.
--- NOTE | 2023-03-23 18:55 | NUR ---
PT ARRIVES VIA BED FROM OPERATING ROOM, AND CREW ALONG SIDE. PT BEING BAGGED BY , RT RENETTA EN ROUTE. PT WITH STABLE VS, ABD WITH C/D/I WITH IZAIAH ATTACHED. NEW APPLIANCE TO LEFT LOWER QUADRANT. CLEAN AND INTACT. WOUNDS TO BILATERAL ANKLES WRAPPED IN GAUZE, IV TO SKYLA, PRICE TO GRAVITY DRAINAGE. WRIST RESTRAINTS FOR SAFETY. PT OPENS EYES, PROPOFOL ORDERED FOR THE NIGHT.
[2023-03-23 21:27] LABS: Source, Urine Foley catheter
--- NOTE | 2023-03-23 21:27 | NUR ---
ASSUMED CARE AT 1900 PATIENT IS INTUBATED AND SEDATED ON PROPOFOL. ABLE TO NOD YES/NO AT TIMES. NODS YES TO PAIN, MEDICATED PER EMAR. 02 SATS 95% ON VENT AC VC 14/450/5/50%, SMALL AMOUNT OF THICK YELLOW SECRETIONS FROM ETT. HR SR 90s-110, WITH PACs. BP STABLE. PRICE PATENT AND DRAINING TO GRAVITY, UA SENT TO LAB. COLOSTOMY WITH SCANT AMOUNT OF SIMA RED DRAINAGE. DRESSING AND IZAIAH TO MID ABD WITH SMALL AMOUNT OF BLOOD ON DRESSING, MARKED AREA. UPDATED DAUGHTER TEETEE ON PATIENT CONDITION. SEE SHIFT ASSESSMENT FOR MORE INFORMATION.
[2023-03-23 21:51] LABS: Bilirubin, Urine Neg (Neg); Blood, Urine 5+ (Neg); Glucose Qualitative, Urine Neg (Neg); Ketones, Urine Neg (Neg); Leukocyte Esterase, Urine Neg (Neg); Nitrite, Urine Neg (Neg); Protein, Urine 3+ (Neg); Specific Gravity, Urine 1.025 (1.003-1.022); Urobilinogen, Urine NORM (Normal)
[2023-03-23 22:23] LABS: Appearance, Urine Hazy (Clear); Color, Urine Yellow (P-Yellow)
[2023-03-23 22:32] LABS: Amorphous Mod (0-Heavy); Bacteria Mod /hpf; Red Blood Cells, Urine TNTC /hpf (0-2); Squamous Epithelial Cells Not Seen /hpf (Few); White Blood Cells, Urine 0-2 /hpf (0-5); Yeast/Fungi Urine Few /hpf
[2023-03-24] VITALS (19 sets, daily range): BP systolic 104–151; BP diastolic 62–89
[2023-03-24 04:06] LABS: Hematocrit 33.2 % (37.0-53.0); Hemoglobin 10.9 g/dL (13.5-17.5); Mean Corpuscular HGB 30.1 pg (26.0-34.0); Mean Corpuscular HGB Conc 32.8 g/dL (31.5-36.5); Mean Corpuscular Volume 92 fL (80-100); Mean Platelet Volume 10.4 fL (9.1-12.4); Platelet Count 279 K/mm3 (150-400); RDW Coefficient Variation 13.6 % (11.7-14.2); RDW Standard Deviation 45.8 fL (35.1-46.3); Red Blood Cell Count 3.62 M/mm3 (4.30-5.90); White Blood Cell Count 11.32 K/mm3 (4.00-11.30)
[2023-03-24 04:29] LABS: Albumin, Blood 1.5 g/dL (3.4-5.0); Albumin/Globulin Ratio 0.6 (0.8-1.8); Bilirubin, Total 0.3 mg/dL (0.1-1.0); Bun/Creatinine Ratio 36.8 (12.0-20.0); Calcium, Blood 7.9 mg/dL (8.5-10.1); Creatinine, Blood 1.25 mg/dL (0.60-1.20); Globulin, Blood 2.7 g/dL (2.2-4.0); Potassium, Blood 4.4 mmol/L (3.5-5.5); Total Protein, Blood 4.2 g/dL (6.4-8.2)
[2023-03-24 04:49] LABS: BAND PERCENT MAN 17 % (0-8); BASOPHILS PERCENT MAN 0 % (0-2); EOSINOPHILS PERCENT MAN 0 % (0-6); LYMPHOCYTES ABSOLUTE MAN 0.56 K/mm3 (0.84-5.20); LYMPHOCYTES PERCENT MAN 5 % (21-46); MONOCYTES ABSOLUTE MAN 0.56 K/mm3 (0.16-1.47); MONOCYTES PERCENT MAN 5 % (4-13); NEUTROPHILS ABSOLUTE MAN 10.18 K/mm3 (1.96-9.15); SEG NEUTROPHILS PERCENT MAN 73 % (41-73); TOTAL CELLS COUNTED 100
--- NOTE | 2023-03-24 06:17 | NUR ---
SHIFT SUMMARY PATIENT REMAINS INTUBATED AND SEDATED ON PROPOFOL. ABLE TO FOLLOW SIMPLE COMMANDS, NODS YES/NO. MEDICATED FOR PAIN PER EMAR. COLOSTOMY WITH SCANT BLOODY OUTPUT. MID ABD DRESSING AND IZAIAH DRAIN REMAIN IN PLACE. PRICE PATENT AND DRAINING TO GRAVITY. REPOSITIONED Q2 HOURS. CALL LIGHT IN REACH.
--- NOTE | 2023-03-24 10:46 | NUR ---
SHAMAR HAS BEEN OPENING HIS EYES SPONTANEOUSLY AND ANSWERING QUESTIONS APPROPRIATELY. HE IS BEING WEANED OFF THE VENTILATOR, HAVE ORDERS TO REMOVE WHEN R/T AVAILABLE. MEDICATED FOR PAIN NEEDED. IN AND DRESSING CHANGE TO BILATERAL LOWER LEGS AND BOTH ELBOWS COMPLETED. PIV TO PORFIRIO C/D/I, PG TO SKYLA WNL.
--- NOTE | 2023-03-24 11:11 | NUR ---
1105 PT EXTUBATED TO 3L/NC HE IS COOPERATIVE AND BREATHING EASY. SATS 92%, MINIMAL SECRETIONS. ABDOMEN TENDER, COUNTER PRESSURE TECHNIQUE TAUGHT WHILE PT COUGHING. DISCUSSION ABOUT SURGERY AND COLOSTOMY, WHAT TO EXPECT. NODS IN AGREEMENT.
--- NOTE | 2023-03-24 15:21 | NUR ---
SHAMAR'S DAUGHTER CALLED BACK FOR AN UPDATE, PRESENT AND WANTED TO SPEAK WITH HER. PHONE CALL WAS THEN TURNED OVER TO THE PATIENT ONCE WAS FINISHED.
--- NOTE | 2023-03-24 15:43 | NUR ---
TEMPERATURE IS SLOWLY CLIMBING, PT REMINDED TO DO SLOW DEEP BREATHS; ALSO GAVE HIM THE FLUTTER VALVE DEVICE. HE HAD BEEN USING THE DEVICE PRE OPERATIVELY, SO HE KNOWS HOW TO USE IT.
--- NOTE | 2023-03-24 17:03 | NUR ---
SHAMAR CONTINUES TO BE ABLE TO MAKE HIS NEEDS KNOWN. HE HAS BEEN USING THE URINAL FOR VOIDING. HE HAS HAD MINIMAL OUT THE OSTOMY SITE. HE HAS BEEN ABLE TO RINSE HIS MOUTH WITH COLD WATER, THE NGT REMOVED PER ORDERS. FEET REMAIN EDEMATOUS BILATERALLY, SKIN REMAINS FRAGILE. BILAT LOWER ARM SLEEVES PRESENT, ELBOWS DRESSED WITH FOAM PADS. PT REMAINS DEPRESSED AND GRIEVING FROM THE LOSS OF HIS JUST A COUPLE OF WEEKS AGO. HE HAS SPOKEN TO HIS DAUGHTER ON THE PHONE. HE HAS TAKEN FENTANYL FOR PAIN, LENGTHENING THE TIME BETWEEN DOSES. NC @ 3L, CONTINUES WITH SATS >95%. REPORT TO MELISA CARPENTER, WILL BE MOVING TO SURGICAL FLOOR.
[2023-03-25 04:10] VITALS: BP 136/91
--- NOTE | 2023-03-25 05:24 | NUR ---
SHIFT SUMMARY POD 2, SIGMOID COLECTOMY W/ COLOSTOMY. MIDLINE IZAIAH DRESSING INTACT, SMALL DRIED MARKED DRAINAGE SITES TO DRESSING. OSTOMY INTACT W/ MINIMAL RED LIQUID DRAINAGE IN BAG, ABD TENDER/ DISTENDED AND PT REPORTS DECREASING. PT MEDICATED FOR 5/10 PAIN 5X THIS SHIFT AND 1X FOR NAUSEA. TELE IN PLACE, PER SURGICAL PRODUCT SALES CONSULTANT, TACHYCARDIA W/ PAC'S AND SMALL RUN OF SVT @0350, PT NON SYMPTOMATIC. PT CONTINUES TO REPORT UNABLE TO COUGH AND DEEP BREATH. EDUCATED ON IMPORTANCE, PT UNDERSTANDING. PT CONTINUES USE OF 4L O2 VIA NC W/ SATS OF 95-97% 3+ PITTING EDEMA TO BL FEET. VERY TENDER TO TOUCH. GAUZE WRAP TO BL ANKLES/SHINS TO COVER EDEMA ULCERS PER PT REPORT. POWER GLIDE TO L UPPER ARM PATENT/ INFUSING KVO. PT REMAINS NPO W/ SIPS PER ORDERS. CALL LIGHT USED APPROPRIATELY AND PT ABLE TO VOICE HIS NEEDS ACCORDINGLY.
[2023-03-25 05:37] LABS: Hematocrit 32.6 % (37.0-53.0); Hemoglobin 10.6 g/dL (13.5-17.5); Mean Corpuscular HGB 29.9 pg (26.0-34.0); Mean Corpuscular HGB Conc 32.5 g/dL (31.5-36.5); Mean Corpuscular Volume 92 fL (80-100); Mean Platelet Volume 10.7 fL (9.1-12.4); Platelet Count 266 K/mm3 (150-400); RDW Coefficient Variation 13.6 % (11.7-14.2); RDW Standard Deviation 46.5 fL (35.1-46.3); Red Blood Cell Count 3.54 M/mm3 (4.30-5.90); White Blood Cell Count 12.13 K/mm3 (4.00-11.30)
[2023-03-25 05:56] LABS: BAND PERCENT MAN 7 % (0-8); BASOPHILS PERCENT MAN 0 % (0-2); EOSINOPHILS ABSOLUTE MAN 0.12 K/mm3 (0.00-0.68); EOSINOPHILS PERCENT MAN 1 % (0-6); LYMPHOCYTES ABSOLUTE MAN 0.48 K/mm3 (0.84-5.20); LYMPHOCYTES PERCENT MAN 4 % (21-46); METAMYELOCYTE ABSOLUTE MAN 0.12 K/mm3 (0.00-0.00); METAMYELOCYTE PERCENT MAN 1 % (0-0); MONOCYTES ABSOLUTE MAN 0.48 K/mm3 (0.16-1.47); MONOCYTES PERCENT MAN 4 % (4-13); MYELOCYTE ABSOLUTE MAN 0.24 K/mm3 (0.00-0.00); MYELOCYTE PERCENT MAN 2 % (0-0); NEUTROPHILS ABSOLUTE MAN 10.67 K/mm3 (1.96-9.15); SEG NEUTROPHILS PERCENT MAN 81 % (41-73); TOTAL CELLS COUNTED 100
[2023-03-25 06:28] LABS: Albumin, Blood 1.5 g/dL (3.4-5.0); Albumin/Globulin Ratio 0.5 (0.8-1.8); Bilirubin, Total 0.3 mg/dL (0.1-1.0); Creatinine, Blood 1.2 mg/dL (0.60-1.20); Globulin, Blood 3.1 g/dL (2.2-4.0); Total Protein, Blood 4.6 g/dL (6.4-8.2)
[2023-03-25 07:06] VITALS: BP 165/84
[2023-03-25 15:21] VITALS: BP 137/96
[2023-03-25 15:22] VITALS: BP 152/103
--- NOTE | 2023-03-25 16:43 | NUR ---
SHIFT SUMMARY POD 2 SIGMOID COLECTOMY WITH COLOSTOMY PT REMAINS DISTENDED, NO FLATUS OR STOOL IN HIS OSTOMY. PT REMAINS NPO WITH SMALL SIPS OF WATER. SLIGHT NAUSEA THAT COMES AND GOES T/O SHIFT, MEDICATION PER EMAR. NO EMESIS. PAIN CONTROLLED PER EMAR, ENCOURAGING PATIENT TO GET UP TO CHAIR TODAY, HE HAS DECLINED. PT REPORTS HE IS WILLING TO SIT AT THE EDGE OF THE BED DURING THIS SHIFT, WILL CONTINUE TO ENCOURAGE. MIDLINE INCISION REMAINS UNCHANGED. PT CALLS APPROPRIATLY, DENIES FURTHER NEEDS DURING SHIFT.
[2023-03-25 19:16] VITALS: BP 129/83
--- NOTE | 2023-03-26 04:00 | NUR ---
RX OUT OF STOCK ELSY SUÁREZ RECEIVED CALL FROM PHARMACY TO INFORM THAT PT RX AZACTAM IS OUT OF STOCK AND EXPECTED TO ARRIVE THIS A.M. APPROX 0900.
[2023-03-26 04:12] VITALS: BP 153/95
[2023-03-26 05:14] LABS: Hemoglobin 11.2 g/dL (13.5-17.5); Mean Corpuscular HGB 29.6 pg (26.0-34.0); Mean Corpuscular HGB Conc 31.1 g/dL (31.5-36.5); Mean Corpuscular Volume 95 fL (80-100); Mean Platelet Volume 10.5 fL (9.1-12.4); Platelet Count 327 K/mm3 (150-400); RDW Coefficient Variation 13.8 % (11.7-14.2); Red Blood Cell Count 3.79 M/mm3 (4.30-5.90); White Blood Cell Count 15.56 K/mm3 (4.00-11.30)
--- NOTE | 2023-03-26 05:21 | NUR ---
SHIFT SUMMARY POD 3 SIGMOID COLECTOMY W/ COLOSTOMY. MINIMAL OUTPUT TO OSTOMY, HYPOACTIVE BT, MODERATELY DISTENDED ABD. IZAIAH DRESSING TO MIDLINE INCISION INTACT W/ SMALL SPOTS OF RED BLOOD. NO REQUESTS FOR PAIN MEDS THIS SHIFT. PT UP TO SIDE OF BED/ CHAIR THIS A.M. TOLERATED WELL. BLLE DRESSING CHANGES COMPLETED, COVERED W/ NON ADHERANT PAD, GAUZE WRAPPED, AND MESH TUBE, 3-4+ PITTING EDEMA. LLE WEAPING CLEAR FLUID. ELBOW MEPILEX DRESSINGS CHANGED, AND POWER GLIDE DRESSING CHANGED. TEGADERM PLACED UNDER POWER GLIDE DRESSING TO COVER SKIN TEAR TO UNDER SIDE OF IV. O2 CONTINUED AT 4L NC. NPO W/ SIPS, MEDICATED FOR NAUSEA X1 THIS SHIFT. PT APPEARS TO HAVE BETTER SPIRITS THIS SHIFT COMPAIRED TO PREVIOUS SHIFT. PHONE CALL WITH DAUGHTER TEETEE WENT WELL, VERY LOVING FROM PT. PLANS FOR PT TO WORK W/ PT/OT TODAY. CALL LIGHT IN REACH. NO ACUTE CHANGES THIS SHIFT.
[2023-03-26 05:46] LABS: Bun/Creatinine Ratio 58.6 (12.0-20.0); Calcium, Blood 8.5 mg/dL (8.5-10.1); Creatinine, Blood 1.16 mg/dL (0.60-1.20); Potassium, Blood 4.8 mmol/L (3.5-5.5)
[2023-03-26 06:13] LABS: BAND PERCENT MAN 3 % (0-8); BASOPHILS PERCENT MAN 0 % (0-2); EOSINOPHILS PERCENT MAN 0 % (0-6); LYMPHOCYTES % ATYPICAL MANUAL 1 % (0-0); LYMPHOCYTES ABSOLUTE MAN 0.31 K/mm3 (0.84-5.20); LYMPHOCYTES PERCENT MAN 1 % (21-46); METAMYELOCYTE ABSOLUTE MAN 0.31 K/mm3 (0.00-0.00); METAMYELOCYTE PERCENT MAN 2 % (0-0); MONOCYTES ABSOLUTE MAN 0.31 K/mm3 (0.16-1.47); MONOCYTES PERCENT MAN 2 % (4-13); NEUTROPHILS ABSOLUTE MAN 14.62 K/mm3 (1.96-9.15); SEG NEUTROPHILS PERCENT MAN 91 % (41-73); TOTAL CELLS COUNTED 100
[2023-03-26 08:49] VITALS: BP 128/70
--- NOTE | 2023-03-26 18:45 | NUR ---
SHIFT SUMMARY A&OX4, VSS/9L HI FLOW OXYGEN, TCDB & I.S. EDU/ENC/DEMONSTRATED BY PT, PARVIN CLD - ENC TO INTAKE SLOWLY, VOIDING/URINAL, PAIN MANAGED, STAND PIVOT W/FWW & GB, UP TO CHAIR TODAY. POD3 SIG COL W/OSTOMY W/FLATUS AND BROWN LIQUID OUT, IZAIAH WNL. LINOLEUM PRINTER ADDRESSED WOUNDS. I CHANGED EXT DWELL DRESSING AND LUE SKIN TEAR DRESSING. REPORT TO KRYSTAL VINCENT.
[2023-03-26 20:59] VITALS: BP 147/81
[2023-03-27 04:09] VITALS: BP 145/91
--- NOTE | 2023-03-27 04:30 | NUR ---
SHIFT SUMMARY NO NEW ISSUES NOTED. PT INLINE DRESSING HAS SOME SHADOWING. PT COLOSTOMY HAS SOME BROWN STOOL. PT HAS REMAINED ON CLEAR LIQUIDS. PT DENIES N/V OR SIGNIFICANT DISCOMFORT. PT HAS BEEN SLEEPING FOR MOST OF SHIFT. PT VOIDING VIA URINAL. CALL LIGHT IN REACH.
[2023-03-27 07:12] VITALS: BP 140/80
--- NOTE | 2023-03-27 14:18 | NUR ---
Spiritual care visit conducted. PAtient is sitting on a chair and resting. He awakens to the sound of his name. It takes a couple minutes to clear the cobwebs but once engaged we a long conversation about his spouse, I talk to him about my conversations with her a month ago (02/13/23). We explain about her concerns for him and her wishes for him to take better care of himself and that he would remain hopeful after she . We talk about strategies for doing the hard work of bereavement and explore sources of support and spiritual care. He shares some beutiful memories and some fears about the future. I listen empathically, normalize his feelings and fears, and provide gentle personnel counselor and prayer. Patient responded well and showed signs of being better equipped to deal with his grief and better hopes about his medical recovery. I will continue to remain available to patient and family.
[2023-03-27 14:29] VITALS: BP 124/67
--- NOTE | 2023-03-27 17:14 | NUR ---
SHIFT SUMMARY PT A&OX4, VSS/5LHF, TELE ST 100 BPM, PARVIN PO CLD, VOIDING/URINAL INDEPENDENTLY, AMB FEW STEPS WITH 1 PP MOD ASSIST & FWW/GB - UP TO CHAIR FOR APPROX 5 HOURS TODAY, TCDB & I.S. EDU/ENC/DEMONSTRATED BY PT, PAIN MANAGED. POD4 COLECTOMY WITH OSTOMY, PASSING FLATUS AND 50 MLS OF BROWN LIQUID OUT. WILL REPORT TO ONCOMING NOC RN.
[2023-03-27 19:16] VITALS: BP 148/83
[2023-03-28] VITALS (26 sets, daily range): BP systolic 84–122; BP diastolic 58–84
[2023-03-28 05:06] LABS: Hematocrit 29.7 % (37.0-53.0); Hemoglobin 9.4 g/dL (13.5-17.5); Mean Corpuscular HGB 29.6 pg (26.0-34.0); Mean Corpuscular HGB Conc 31.6 g/dL (31.5-36.5); Mean Corpuscular Volume 93 fL (80-100); Mean Platelet Volume 10.6 fL (9.1-12.4); Platelet Count 265 K/mm3 (150-400); RDW Coefficient Variation 13.4 % (11.7-14.2); RDW Standard Deviation 45.9 fL (35.1-46.3); Red Blood Cell Count 3.18 M/mm3 (4.30-5.90); White Blood Cell Count 12.32 K/mm3 (4.00-11.30)
--- NOTE | 2023-03-28 05:32 | NUR ---
SHIFT SUMMARY PT HAS BEEN SLEEPING WELL. PT HAS BEEN TREATED FOR PAIN PER EMAR.PT HAD MOSTLY GAS IN OSTOMY THIS SHIFT. PT HAS BEEN DRINKING CLEAR LIQUIDS. PT ABD DRESSING IS C/D/I WITH SHADOWING. PT LEGS AND ARMS DRESSING ARE DUE TO BE CHANGED ON DAYSHIFT. PT HEELS CONTINUE TO BE PROTECTED BY PINK FOAM. PT VOIDING VIA URINAL. CALL LIGHT IN REACH.
[2023-03-28 05:40] LABS: Bun/Creatinine Ratio 56.7 (12.0-20.0); Calcium, Blood 8.1 mg/dL (8.5-10.1); Creatinine, Blood 1.2 mg/dL (0.60-1.20); Potassium, Blood 3.3 mmol/L (3.5-5.5)
[2023-03-28 05:52] LABS: BASOPHILS PERCENT MAN 0 % (0-2); EOSINOPHILS ABSOLUTE MAN 0.12 K/mm3 (0.00-0.68); EOSINOPHILS PERCENT MAN 1 % (0-6); LYMPHOCYTES ABSOLUTE MAN 0.61 K/mm3 (0.84-5.20); LYMPHOCYTES PERCENT MAN 5 % (21-46); MONOCYTES ABSOLUTE MAN 0.61 K/mm3 (0.16-1.47); MONOCYTES PERCENT MAN 5 % (4-13); MYELOCYTE ABSOLUTE MAN 0.49 K/mm3 (0.00-0.00); MYELOCYTE PERCENT MAN 4 % (0-0); NEUTROPHILS ABSOLUTE MAN 10.47 K/mm3 (1.96-9.15); SEG NEUTROPHILS PERCENT MAN 85 % (41-73); TOTAL CELLS COUNTED 100
--- NOTE | 2023-03-28 06:45 | NUR ---
0630 THIS AM AT 0630 TELETECH CALLED AND INFORMED OF PT HAVING A RATE IN 150'S. PT ASSESSED AND DENIES CX PAIN OR SOB. 12-LEAD EKG OBTAINED AND STATES ST@ 140'S. DR PAGE CALLED AND HE ORDERED IV LOPRESSOR. MONITORING PT FOR RATE CHANGE AT THIS TIME.
--- NOTE | 2023-03-28 08:31 | NUR ---
PATIENTS HEART RATE WITH MORNING VITALS SHOWED HE CONTINUES TO BE IN THE 140-150 BPM AFTER NIGHTSHIFT GAVE HIM IV LOPRESSOR. PATIENT DENIES SOB OR CHEST PAIN AND IS LAYING IN BED WITH CALL LIGHT IN REACH. THIS NURSE THEN CALLED DR. ENGLAND TO GIVE HER AN UPDATE AND THEN SHE ORDERED IV 10 MG OF CARDIZEM ONE TIME ORDER. AFTER THIS NURSE GAVE THE CARDIZEM IV PUSH PER PHOTO TECH PATIENTS HEART RATE WENT DOWN TO 120 BPM, BUT THEN 2 MINUTES LATER PHOTO TECH CALLED THIS NURSE BACK SAYING PATIENTS HEART RATE WENT BACK UP TO THE 140-150'S BPM. THIS NURSE THEN CALLED DR. ENGLAND AGAIN TO GIVE HER THE NEWEST UPDATE AND SHE THEN ORDERED AN IV CARDIZEM DRIP AND TO BE TRANSFERRED TO PCU. PATIENT CONTINUES TO BE LAYING IN BED WITH CALL LIGHT IN REACH AND DENIES SOB OR CHEST PAIN/PALPATATIONS.
--- NOTE | 2023-03-28 10:43 | NUR ---
care assumption this rn assumed care at 0900, tele aflutter 151, soft bp, maps above 65. patient is alert and oriented x4. perrla. patient is able to make needs known. patient reports pain has improved since having pain medication before transfer to pcu, see emar. patient reports no chest pain/pressure or shortness of breath. see shift assessment for further detials. wound care in and cleaned and changes dressings on wounds. next change and cleaning is sunday. patient started on cardizem at a rate of 5. patient heart rate increased to 153, and bp soft, but stable map above 65. rated increased to 10 after 20 mins. bp soft and rate remains at 150-153 range. this rn caled md noyola, cardizem stopped. this rn called mr noyola with the blood pressure after stopping cardizem and giving approriate time. bp remained soft and this rn called md noyola an order for a 500 normal saline bolus ordered and infusing. bp improving. plan of care is up to date and call light within reach.
--- NOTE | 2023-03-28 11:12 | NUR ---
Patient is lying in bed and alert. He talks about feeling like his life is going in a downward spiral and that his physical heart is acting like his emotional heart which is broken due to the recent of his spouse. I provide grief support, levity and prayer. PAtient responded well and showed signs of being comforted and having an elevated mood. I will continue to remain available to patient and family.
--- NOTE | 2023-03-28 15:47 | NUR ---
WOUND CARE BUE AND BLE DRESSINGS CHANGED PER ORDER. ALL WOUNDS SHOWING IMPROVEMENT. PT TOLERATED WELL
--- NOTE | 2023-03-28 17:47 | NUR ---
shift summary patient neuro remains intact. vital signs stable with soft bp. tele aflutter 130-150s. plan of care remains up to date. no acute changes this shift. lauren and palliative care in to see patient. this rn updated daughter pravin and madhuri rn spoke with pravin.
--- NOTE | 2023-03-28 18:20 | NUR ---
Met with pt to review his needs. This patient is known to this sports writer from his who was recently placed on hospice. This sports writer also tried to facilitate hospice for Mr. Delaney He came in to visit his in a wheel chair and severly shorit of breath and fatigued. Met with pt he remebered me but not the converseation. He is now full code and has ahistory of being a dnr. In previous discussion with his they have had many discussion on frailty and their decline. Did not discuss at this time with pt as he kept pulling conversation back to his and his broken heart. Spoke with daughter pravin about his risk for sudden life threatening dysrymia and stated we may need to call you if he declines. Daughter spoke with him on phone at length and he stated he wanted to repect their wish to go peacfully. pt made DNR. Spoke with daughter to confirm. hospe is we can optimize him and get him home on hospice and allow him dignity.
[2023-03-29] VITALS (21 sets, daily range): BP systolic 66–154; BP diastolic 48–106
[2023-03-29 03:48] LABS: BASOPHILS ABSOLUTE AUTO 0.03 K/mm3 (0.00-0.23); BASOPHILS PERCENT AUTO 0 % (0-2); EOSINOPHILS ABSOLUTE AUTO 0.04 K/mm3 (0.00-0.68); EOSINOPHILS PERCENT AUTO 0 % (0-6); Hematocrit 29.4 % (37.0-53.0); Hemoglobin 9.3 g/dL (13.5-17.5); IMMATURE GRAN ABSOLUTE AUTO 0.58 K/mm3 (0.00-0.10); IMMATURE GRAN PERCENT AUTO 4 % (0-1); LYMPHOCYTES ABSOLUTE AUTO 0.59 K/mm3 (0.84-5.20); LYMPHOCYTES PERCENT AUTO 4 % (21-46); MONOCYTES PERCENT AUTO 3 % (4-13); Mean Corpuscular HGB 29.8 pg (26.0-34.0); Mean Corpuscular HGB Conc 31.6 g/dL (31.5-36.5); Mean Corpuscular Volume 94 fL (80-100); Mean Platelet Volume 10.6 fL (9.1-12.4); NEUTROPHILS ABSOLUTE AUTO 13.18 K/mm3 (1.96-9.15); NEUTROPHILS PERCENT AUTO 88 % (41-73); Platelet Count 277 K/mm3 (150-400); RDW Coefficient Variation 13.4 % (11.7-14.2); RDW Standard Deviation 46.3 fL (35.1-46.3); Red Blood Cell Count 3.12 M/mm3 (4.30-5.90); White Blood Cell Count 14.92 K/mm3 (4.00-11.30)
[2023-03-29 04:23] LABS: Albumin, Blood 1.5 g/dL (3.4-5.0); Anion Gap 1 mmol/L (6-16); Blood Urea Nitrogen 60 mg/dL (8-24); CO2, Blood 37 mmol/L (21-32); Calcium, Blood 7.9 mg/dL (8.5-10.1); Chloride, Blood 105 mmol/L (98-108); Creatinine, Blood 1.09 mg/dL (0.60-1.20); Glomerular Filtration Rate 71 (60-); Glucose, Blood 104 mg/dL (70-99); Magnesium, Blood 1.7 mg/dL (1.6-2.4); Phosphorus, Blood 1.9 mg/dL (2.5-4.9); Potassium, Blood 4.2 mmol/L (3.5-5.5); Sodium, Blood 143 mmol/L (136-145)
--- NOTE | 2023-03-29 06:32 | NUR ---
SHIFT SUMMARY PATIENT ALERT AND ORIENTED X4. PATIENT IS WEAK AND WAS BEDREST OVERNIGHT. PATIENT MEDICATED PER EMAR FOR PAIN AND NAUSEA. PATIENT'S HEART RATE RESPONDED WELL TO THE 2ND DOSE OF IV DIGOXIN AND WAS AFLUTTER 110'S, HOWEVER AROUND 0330 HEART RATE INCREASED TO SUSTAIN IN THE 140'S. NOTIFIED DR PAGE OF THIS WHO ORDERED A REPEAT EKG, 2 GM IV MAGNESIUM, AND AN AMIODARONE BOLUS. BLOOD PRESSURE HAS BEEN STABLE. PATIENT DENIES CHEST PAIN AND SHORTNESS OF BREATH. PATIENT CURRENTLY ON 3 LITERS O2 VIA NC SATING 92%. BOWEL TONES PRESENT WITH PATIENT PASSING GAS. DRESSINGS CLEAN, DRY, AND INTACT. PATIENT ASSESSED FOR IGNITION RISK AND EDUCATED ON FIRE SAFETY IN THE HOSPITAL. WILL CONTINUE TO MONITOR. CALL LIGHT WITHIN REACH.
--- NOTE | 2023-03-29 08:32 | NUR ---
CARE ASSUMPTION this rn assumed care at 0700. vital signs stable. tele aflutter 114-150s. patient is alert and oriented x4. perrla. patient reports numbness and tingling to extremities. patient reports pain in abd at 5, and received pain medication. patient reports shortness of breath with activity. patient reports no chest pain/pressure. see shift assessment for further detials. dennys in to see patient this am and discussed plan of care. going to start amio drip, see orders. plan of care is up to date. call light within reach
[2023-03-29 09:32] LABS: Base Excess Venous 12.4 mmol/L; PCO2 Venous 71.7 mmHg (38-42); pH Blood Venous 7.34 (7.34-7.37)
[2023-03-29 09:49] LABS: Anti-Xa UFH, PHA Monitoring 0.17 IU/mL; International Normalized Ratio 1.12; Prothrombin Time Results 11.7 Sec (9.7-11.5)
--- NOTE | 2023-03-29 14:43 | NUR ---
Spiritual care visit conducted. Patient is sitting on a chair and alert. He shares about his frustrations with how his body is not "getting itself together" and how he is struggling dealing with the grief and trying to heal at the same time. We talk about the things he is looking forward to, the love he has for his family and the yesenia in God that is slowly returning. He laughs a bit more this visit and seems to have a greater determination to be well. I provide therapeutic listening, prayer and grief support. Patient responded well and showed signs of greater resolve and peace.
--- NOTE | 2023-03-29 17:26 | NUR ---
Several visits today to see how pt doing. Affect a little brighter. Pt very frail. Was able to get to chair. Daughters will be in tomorrow. pt kps score is 35%. pt high risk for failure of rehab plan. Will see how he does tomorrow may be better served by hospice care.
--- NOTE | 2023-03-29 18:01 | NUR ---
shift summary patient blood pressure improved. see vitals. amio drip infusing at 16.6. gino has heparin drip infusing 15u/kg/hr. see orders for both drips. patient neuro remains unchaged. assessment remains unchaged. plan of care up to date. call light within reach
--- NOTE | 2023-03-29 19:00 | NUR ---
ASSUMED CARE OF PT AT 1900 PT RESTING IN BED AT TIME OF BEDSIDE REPORT. 4LPM NC TITRATED TO 3 LPM NC AT THIS TIME. WITH 100% SPO2. AMIO DRIP AT 16.6 MLS/HR. HEPARIN AT 16 UNITS/HR VERIFIED WITH DAY SHIFT RN AT THIS TIME. BED IN LOW POSITION, CALL LIGHT WITHIN REACH. PT RECENTLY GIVEN PAIN MEDICATION WITH PAIN LEVEL 3/10 AT THIS TIME. PLEASE SEE ASSESSMENT FOR FURTHER INFORMATION.
[2023-03-30] VITALS: BP 110/70
[2023-03-30 01:47] LABS: BASOPHILS ABSOLUTE AUTO 0.02 K/mm3 (0.00-0.23); BASOPHILS PERCENT AUTO 0 % (0-2); EOSINOPHILS ABSOLUTE AUTO 0.01 K/mm3 (0.00-0.68); EOSINOPHILS PERCENT AUTO 0 % (0-6); Hematocrit 27.9 % (37.0-53.0); Hemoglobin 8.9 g/dL (13.5-17.5); IMMATURE GRAN ABSOLUTE AUTO 0.77 K/mm3 (0.00-0.10); IMMATURE GRAN PERCENT AUTO 5 % (0-1); LYMPHOCYTES ABSOLUTE AUTO 0.54 K/mm3 (0.84-5.20); LYMPHOCYTES PERCENT AUTO 4 % (21-46); MONOCYTES PERCENT AUTO 3 % (4-13); Mean Corpuscular HGB 29.9 pg (26.0-34.0); Mean Corpuscular HGB Conc 31.9 g/dL (31.5-36.5); Mean Corpuscular Volume 94 fL (80-100); Mean Platelet Volume 10.5 fL (9.1-12.4); NEUTROPHILS ABSOLUTE AUTO 13.81 K/mm3 (1.96-9.15); NEUTROPHILS PERCENT AUTO 88 % (41-73); Platelet Count 253 K/mm3 (150-400); RDW Coefficient Variation 13.6 % (11.7-14.2); RDW Standard Deviation 46.5 fL (35.1-46.3); Red Blood Cell Count 2.98 M/mm3 (4.30-5.90); White Blood Cell Count 15.65 K/mm3 (4.00-11.30)
[2023-03-30 02:07] LABS: Albumin, Blood 1.5 g/dL (3.4-5.0); Anion Gap 3 mmol/L (6-16); Blood Urea Nitrogen 61 mg/dL (8-24); Bun/Creatinine Ratio 54.5 (12.0-20.0); CO2, Blood 35 mmol/L (21-32); Calcium, Blood 7.9 mg/dL (8.5-10.1); Chloride, Blood 104 mmol/L (98-108); Creatinine, Blood 1.12 mg/dL (0.60-1.20); Glomerular Filtration Rate 69 (60-); Glucose, Blood 120 mg/dL (70-99); Phosphorus, Blood 2.5 mg/dL (2.5-4.9); Potassium, Blood 3.9 mmol/L (3.5-5.5); Sodium, Blood 142 mmol/L (136-145)
[2023-03-30 04:00] VITALS: BP 115/64
--- NOTE | 2023-03-30 06:26 | NUR ---
END OF SHIFT SUMMARY PT WAS UNABLE TO REST VERY WELL THROUGHOUT SHIFT. NO ACUTE CHANGES THIS SHIFT. HR 100'S. A-FLUTTER AND PVC'S INTERMITENTLY. SBP 110'S. DENIES CP OR PRESSURE. BED IN LOW POSITION,
[2023-03-30 08:13] VITALS: BP 107/53
--- NOTE | 2023-03-30 15:50 | NUR ---
REPORT CALLED TO SURGICAL FLOOR NURSE CLARE. PT TRANSFERED TO SURGICAL FLOOR WITH 3L O2 IN PLACE. HR VIA TELE IS RANGING 90-110 AT TIME OF TRANSFER. PT REPORTS PAIN HE IS AWARE THAT NEXT DOSE OF PAIN MEDCIATION IS DUE SHORTLY AFTER 1600. PT REMAINS ALERT, AND ANSWERING QUESTIONS. NO SOB NOTED
[2023-03-30 15:52] VITALS: BP 115/83
--- NOTE | 2023-03-30 18:42 | NUR ---
TRANSFER: REPORT RECEIVED FROM MECHANICS HANDYMANMELISA COLLADO. PT TO UNIT AT 1550, A/O, VSS. TELE VERIFIED, A FLUTTER 108-120. SURGICAL SITES AND WOUND SITES WNL. WILL CTM AND REPORT TO NOC RN
[2023-03-30 20:30] VITALS: BP 128/81
--- NOTE | 2023-03-31 00:51 | NUR ---
SHIFT ASSESSMENT ATTEMPTED TO CHART SHIFT ASSESSMENT TWICE ON PT THIS SHIFT, COMPLETED EACH TIME TO THE VERY LAST PAGE PSYCHOSOCIAL ASSESSMENT AND IT FROZE BOTH TIMES NOT ALLOWING ME TO FILE. HELP DESK CONTACTED WITH NO RESOLUTION AT THIS TIME. ASSESSMENT UNCHANGED FROM PRIOR ASSESSMENT. OSTOMY TO LLQ INTACT, WITH BROWN LIQUID OUTPUT, OSOTMY BAG BURPED. IZAIAH DRESSING INTACT WITH LIGHT SHADOWING ON DRESSING. DRESSING TO SKIN TEARS ON ARMS, AND DRESSINGS TO BLE INTACT, AND CHANGED 03/30/23 BY WOUND CARE NURSE. PT DENIES SOB, RESP E/U. VITALS ARE STABLE. A/OX4, N/T IN FEET AT BASELINE. TELE AFLUTTER 78 AT THIS TIME. 123 AFLUTTER AT THE TIME OF MY ASSESSMENT. PAIN CONTROLLED. WILL CONTINUE MONITORING.
[2023-03-31 02:46] VITALS: BP 124/75
--- NOTE | 2023-03-31 04:15 | NUR ---
SHIFT SUMMARY PT HAS RESTED MOST OF THE NIGHT, DENIES NEEDS MOST TIMES WHEN ASKED. OSTOMY TO LLQ WITH SMALL AMOUT OF BROWN LIQUID OUTPUT, BAG WAS BURPED ONCE THIS SHIFT. DRESSING INTACT TO BOTH LEGS. IZAIAH TO ABD W SUCTION. PT HAS WEEPING EDEMA TO TRUNK LEFT SIDE. LINEN CHANGE X2 THIS SHIFT. LOWER EXT ALSO EDEMATOUS. TELE IN PLACE WITH AFLUTTER IN THE 70'S PER MONITOR TEACH. PT VOIDING, TOLERATING PO INTAKE. PT MEDICATED X1 FOR PAIN. BED IN LOWEST POSITION, CALL LIGHT WITHIN REACH.
--- NOTE | 2023-03-31 04:28 | NUR ---
FIRE RISK ASSESSED THIS SHIFT. PT EDUCATED ON FIRE RISKS AND IGNITION SOURCES. PT DENIES HAVING IGNITION SOURCES.
[2023-03-31 05:31] LABS: Hematocrit 29.1 % (37.0-53.0); Hemoglobin 9.2 g/dL (13.5-17.5); Mean Corpuscular HGB 29.9 pg (26.0-34.0); Mean Corpuscular HGB Conc 31.6 g/dL (31.5-36.5); Mean Corpuscular Volume 95 fL (80-100); Mean Platelet Volume 10.8 fL (9.1-12.4); NRBC ABSOLUTE 0.08 K/mm3 (0.00-0.02); NRBC Auto 0.6 /100 WBC (0.0-0.2); Platelet Count 257 K/mm3 (150-400); RDW Coefficient Variation 13.9 % (11.7-14.2); RDW Standard Deviation 46.9 fL (35.1-46.3); Red Blood Cell Count 3.08 M/mm3 (4.30-5.90); White Blood Cell Count 14.37 K/mm3 (4.00-11.30)
[2023-03-31 05:54] LABS: Calcium, Blood 8.3 mg/dL (8.5-10.1); Creatinine, Blood 1.26 mg/dL (0.60-1.20); Potassium, Blood 4.7 mmol/L (3.5-5.5)
[2023-03-31 06:03] LABS: BASOPHILS PERCENT MAN 0 % (0-2); EOSINOPHILS PERCENT MAN 0 % (0-6); MONOCYTES ABSOLUTE MAN 0.14 K/mm3 (0.16-1.47); MONOCYTES PERCENT MAN 1 % (4-13); MYELOCYTE ABSOLUTE MAN 0.86 K/mm3 (0.00-0.00); MYELOCYTE PERCENT MAN 6 % (0-0); NEUTROPHILS ABSOLUTE MAN 13.36 K/mm3 (1.96-9.15); SEG NEUTROPHILS PERCENT MAN 93 % (41-73); TOTAL CELLS COUNTED 100
[2023-03-31 07:04] VITALS: BP 141/76
--- NOTE | 2023-03-31 11:49 | NUR ---
PT EXPERIENCED INCREASED HR UPON SITTING AT THE EDGE OF THE BED. HR IN THE 130'S TO 140'S WHILE GETTING TO THE EDGE OF THE BED. HR REMAINED IN THE 130'S WHILE SITTING AT THE EDGE OF THE BED. HR INCREASED TO 140'S WHILE STANDING AND HE BECAME DIZZY AND SOB, PT ASSISTED BACK TO BED AND HR IS TRENDING DOWN TO THE 120'S. AT REST PT REPORTS SHORTNESS OF BREATH IMPROVING.
[2023-03-31 12:13] VITALS: BP 114/70
--- NOTE | 2023-03-31 12:26 | NUR ---
DR. ENGLAND NOTIFIED OF CONTINUED ELEVATED HR OF 127-129. PT REPORTS SHORTNESS OF BREATH IS IMPROVING WHILE AT REST. PLAN OF CARE ONGOING.
--- NOTE | 2023-03-31 14:37 | NUR ---
OSTOMY APPLIANCE CHANGED, ABD MIDLINE DRESSING CHANGED OSTOMY APPLIANCE AND IZAIAH MIDLINE DRESSING REMOVED, ADHESIVE REMOVER USED FOR IMPROVED COMFORT. PT HAS ABD BRUISING AROUND INCISION SITE AND STOMA. STOMA IS PINK, LOWER PORTION THAT WAS COVERED WITH STOOL IS DUSKY, DR. LOMBARDO NOTIFIED. WOUND CLEANSED WITH SKINTEGRITY AND SKIN AROUND THE STOMA WAS CLEANSED. PT WAS PROVIDED WITH VERBAL EDUCATION, PT LISTENED TO EDUCATION BUT WAS APPREHENSIVE TO PARTICIPATE WITH CARE. MEDIPORE DRESSING APPLIED TO MIDLINE INCISION PER INSTRUCTION FROM DR. LOMBARDO.
[2023-03-31 14:51] VITALS: BP 110/72
--- NOTE | 2023-03-31 18:27 | NUR ---
DR. ENGLAND NOTIFIED THAT PT HAS A SUPERFICIAL CLOT TO THE R UPPER ARM.
--- NOTE | 2023-03-31 18:39 | NUR ---
SHIFT SUMMARY PT HAS HAD AN ELEVATED HR THIS SHIFT, HR WAS 120 AT THE BEGINNING OF THE SHIFT AND REACTIVE TO ACTIVITY (SEE NOTE). HR HAS IMPROVED T/O THE DAY. FAMILY HAS BEEN AT THE BEDSIDE AND HAS HAD MULTIPLE QUESTIONS REGARDING DISCHARGE PLANNING. PAIN MANAGED WITH TYLENOL AND OXY TODAY. PT IS A 1 PERSON ASSIST WHEN OOB. OSTOMY HAS HAD BROWN LIQUID STOOL FROM OSTOMY TODAY. ABD MIDLINE DRESSING CHANGED AND WOUND CLEANSED. PLAN OF CARE ONGOING.
[2023-03-31 19:58] VITALS: BP 132/87
[2023-04-01 05:16] VITALS: BP 148/72
--- NOTE | 2023-04-01 06:30 | NUR ---
SHIFT SUMMARY PT A&XO4, AND COOPERATIVE WITH CARE. NO ACUTE CHANGES. MEDICATED FOR PAIN ONCE. TOLERATING PO INTAKE. USING BEDSIDE URINAL INDEPENDENTLY TO VOID. NO OSTOMY OUTPUT THIS SHIFT, BUT PRODUCING FLATUS. MIDLINE DRESSING CHANGED. REMAINS ON 2L OXYGEN. CALLS APPROPRIATELY, CALL LIGHT WITHIN REACH.
[2023-04-01 07:50] VITALS: BP 131/70
[2023-04-01 10:34] LABS: Hematocrit 29.6 % (37.0-53.0); Hemoglobin 9.3 g/dL (13.5-17.5); Mean Corpuscular HGB 30.1 pg (26.0-34.0); Mean Corpuscular HGB Conc 31.4 g/dL (31.5-36.5); Mean Corpuscular Volume 96 fL (80-100); Mean Platelet Volume 10.8 fL (9.1-12.4); NRBC ABSOLUTE 0.07 K/mm3 (0.00-0.02); NRBC Auto 0.5 /100 WBC (0.0-0.2); Platelet Count 256 K/mm3 (150-400); RDW Coefficient Variation 14.3 % (11.7-14.2); RDW Standard Deviation 47.9 fL (35.1-46.3); Red Blood Cell Count 3.09 M/mm3 (4.30-5.90); White Blood Cell Count 14.24 K/mm3 (4.00-11.30)
[2023-04-01 10:55] LABS: Calcium, Blood 8.4 mg/dL (8.5-10.1); Creatinine, Blood 1.2 mg/dL (0.60-1.20); Potassium, Blood 3.8 mmol/L (3.5-5.5)
[2023-04-01 14:40] VITALS: BP 127/88
[2023-04-01 15:16] LABS: Percent Saturation 23.8 % (20.0-50.0)
--- NOTE | 2023-04-01 15:53 | NUR ---
ABD INCISION BLEEDING PT NOTED TO HAVE MODERATE ABD INCISIONAL OOZING. DRESSING WAS CHANGED, INCISION INTACT. ABD PAD AND MEDIPORE TAPE PLACED. ABD BINDER IN PLACE. DR. LOMBARDO NOTIFIED, CONTINUE WITH ABD PAD AT THIS TIME PER DR. LOMBARDO. DR. BILL ALSO NOTIFIED OF BLEEDING, DR. BILL ROUNDED ON PT. PT'S VS ARE STABLE, PT IS ASYMPTOMATIC. PLAN OF CARE ONGOING. INCREASED ABD INCISION OUTPUT WAS NOTED AT APPROXIMATELY 1438.
--- NOTE | 2023-04-01 16:17 | NUR ---
OUTPUT FROM ABD INCISION APPEARS TO BE SLOWING SINCE CLEAN DRESSING WAS PLACED AT APPROXIMATELY 1440. PT ALSO REPORTS PAIN HAS IMPROVED FROM 5/10 TO 2/10.
[2023-04-01 17:50] LABS: Hematocrit 28.5 % (37.0-53.0); Hemoglobin 8.9 g/dL (13.5-17.5)
--- NOTE | 2023-04-01 19:52 | NUR ---
SHIFT SUMMARY PT IS POD#9 FROM SIGMOID COLECTOMY WITH OSTOMY. PT IS HAVING DARK GREEN FORMED OUTPUT AND FLATUS FROM OSTOMY. PT IS APPREHENSIVE ABOUT OSTOMY CARE AND EDUCATION, PT IS CURRENTLY NOT LOOKING AT THE STOMA BUT WILL WATCH WHEN STAFF PROVIDES CARE. PT REPORTED THAT HE LIKES WHEN STAFF TALK TO HIM ABOUT THE OSTOMY CARE THAT IS PROVIDED. OSTOMY EDUCATION GIVEN TO PT CARE WAS PROVIDED THIS SHIFT. PT HAD INCREASED BLEEDING FROM ABD MIDLINE SITE STARTING THIS AFTERNOON, DR. LOMBARDO AND DR. BILL ARE AWARE. BLEEDING APPEARED TO STOP AFTER ABD BINDER WAS PLACED; THEN PT HAD ANOTHER EPISODE OF INCREASED PAIN AND BLEEDING FROM INCISION SITE AT APPROXIMATELY 1730. ABD DRESSING WAS AGAIN CHANGED AND BINDER PLACED. HGB DROPPED FROM 9.3 THIS AM TO 8.9 AT 1730, DR. BILL NOTIFIED AND ELIQUIS HELD THIS EVENING PER DR. BILL. UNABLE TO PLACE SCDS R/T BLE WOUNDS. BLEEDING FROM INCISION SITE APPEARED TO HAVE SLOWED AT TIME OF BEDSIDE REPORT. PT'S FAMILY HAS BEEN AT THE BEDSIDE T/O THE DAY, PT APPEARS TO RESPOND WELL TO HIS DAUGHTER'S TEETEE AND AIDEN. PAIN MANAGED WITH PO PAIN MEDICATION. PT HAS HAD A DECREASED APPETITE, DIETARY CONSULT PLACED FOR WOUND HEALING AND NEW OSTOMY EDUCATION. PT SITTING UP TALKING WITH HIS DAUGHTER AND APPEARED IN GOOD SPIRITS DURING BEDSIDE REPORT.
[2023-04-01 20:29] VITALS: BP 125/79
[2023-04-02 04:44] VITALS: BP 130/89
[2023-04-02 04:56] LABS: Hematocrit 27.7 % (37.0-53.0); Hemoglobin 8.6 g/dL (13.5-17.5); Mean Corpuscular HGB 29.9 pg (26.0-34.0); Mean Corpuscular Volume 96 fL (80-100); Mean Platelet Volume 10.6 fL (9.1-12.4); NRBC ABSOLUTE 0.04 K/mm3 (0.00-0.02); NRBC Auto 0.4 /100 WBC (0.0-0.2); Platelet Count 241 K/mm3 (150-400); RDW Coefficient Variation 14.7 % (11.7-14.2); RDW Standard Deviation 48.1 fL (35.1-46.3); Red Blood Cell Count 2.88 M/mm3 (4.30-5.90); White Blood Cell Count 10.85 K/mm3 (4.00-11.30)
[2023-04-02 05:13] LABS: Bun/Creatinine Ratio 37.7 (12.0-20.0); Calcium, Blood 8.1 mg/dL (8.5-10.1); Creatinine, Blood 1.14 mg/dL (0.60-1.20); Potassium, Blood 3.8 mmol/L (3.5-5.5)
[2023-04-02 07:20] VITALS: BP 129/80
--- NOTE | 2023-04-02 07:41 | NUR ---
SUMMARY PT WITH NO FURTHER BLEED AT INC.H/H STABLE.
[2023-04-02 10:28] VITALS: BP 140/89
--- NOTE | 2023-04-02 13:00 | NUR ---
Spiritual care visit conducted. Patient is sitting on a chair and alert. He tells me about the anemia and the delays it has caused on his d/c. He talks about his family and the sacrifices his daughters have made to be with him. He explains that nothing and no one can fill the void his used to fill. We talk about his grief process; what is working and areas that need improvement. We talk about his medical goals and the plan as far as he understands it. We talk about prayer and explore ideas of what it might look like given his set of circumstances. I provide therapeutic listening, grief support and prayer. Patient responded well and showed signs of being comforted and an elevated mood.
--- NOTE | 2023-04-02 14:01 | NUR ---
ABD DRSG CHANGED DUE TO SMALL AMOUNT RED DRNG. CLEANSED w/ WATER & 4x4's THEN EXUDRY PLACED OVER.
[2023-04-02 15:26] VITALS: BP 123/78
--- NOTE | 2023-04-02 15:55 | NUR ---
WOUND CARE TO BILAT STEPHENS & ELBOWS DONE. MODERATE DRNG TO RLE, MINIMAL TO LLE. VERY SCANT DRNG TO BILAT ELBOWS. BLE PAINFUL BUT OVERALL PT TOLERATED WELL.
--- NOTE | 2023-04-02 18:40 | NUR ---
pt resting well. Able to speak in longer sentences. Will see how how he tolerated PT. pt high risk for failed rehab plan due to his cardiac and pulmonary function. Will follow up with daughters.
--- NOTE | 2023-04-02 19:32 | NUR ---
SHIFT SUMMARY PT WORKED w/ OT, SAT UP IN CHAIR FOR FEW HOURS, ABD CONT'S TO OOZE. DRSG CHANGE x [address] PL[address] w/ LIGHT TAPE.
[2023-04-02 19:43] VITALS: BP 130/78
--- NOTE | 2023-04-02 20:59 | NUR ---
INCISIONAL DRAINAGE: PRIMARY RN ALERTED THIS RN TO CHANGES IN DRNG FROM DISTAL END OF MIDLINE ABD INCISION. DRNG HAD PREVIOUSLY APPEARED RED SS IN COLOR. DRNG NOW APPEARING DARK RED SS W/PURULANT DRNG NOTED. AMT OF DRNG APPEARS TO BE DECREASING. NO REDNESS AROUND INCISION NOTED, SITE SOFT TO PALP, PT DENIES PAIN W/PALP. VITALS STABLE. CALL PLACED TO ONCALL SURGEON DR ALDANA, REVIEWED PT CASE, LABS, VITALS, ETC. PLAN TO CONT MONITORING AND NOTIFY FOR ADDITIONAL CHANGES/CONCERNS.
[2023-04-03 04:42] VITALS: BP 136/70
[2023-04-03 05:16] LABS: Hematocrit 29.2 % (37.0-53.0); Hemoglobin 9.1 g/dL (13.5-17.5); Mean Corpuscular HGB 30.1 pg (26.0-34.0); Mean Corpuscular HGB Conc 31.2 g/dL (31.5-36.5); Mean Corpuscular Volume 97 fL (80-100); Platelet Count 226 K/mm3 (150-400); RDW Coefficient Variation 15.7 % (11.7-14.2); RDW Standard Deviation 49.5 fL (35.1-46.3); Red Blood Cell Count 3.02 M/mm3 (4.30-5.90)
[2023-04-03 05:54] LABS: Bun/Creatinine Ratio 31.1 (12.0-20.0); Calcium, Blood 8.3 mg/dL (8.5-10.1); Creatinine, Blood 1.19 mg/dL (0.60-1.20); Potassium, Blood 3.8 mmol/L (3.5-5.5)
[2023-04-03 07:22] VITALS: BP 89/63
--- NOTE | 2023-04-03 07:22 | NUR ---
SHIFT SUMMARY INCREASED PURULENT SEROSANG DRAINAGE THIS SHIFT FROM LOWER PORTION OF INCISION APPROX 4-5 TAWANA. REPORTED CHANGE FROM PREVIOUS. INCISION CLEANED AND DRESSING CHANGED 3X THIS SHIFT, PT NON SYMPTOMATIC. VSS, PT MEDICATED X1 FOR PAIN. DR. KATZ TO BE NOTIFIED TODAY W/ CHANGE INFO. PT A&OX4, PLEASANT, COOPERATIVE AND APPEARS TO STRUGGLE W/ FAILURE TO THRIVE. DAUGHTER W/ PT T/O EVENING AND REPORTS TO RETURN THIS A.M. CALL LIGHT W/IN REACH.
[2023-04-03 07:23] VITALS: BP 112/68
--- NOTE | 2023-04-03 07:28 | NUR ---
INCREASED DRAINAGE DURING SHIFT REPORT, DRAINAGE IS NOTED TO HAVE INCREASED AND CONTINUED TO OOZE FROM LOWER INCISION PREVIOUSLY REPORTED APPROX 4-5 TAWANA. ONCOMING SHIFT AWARE AND WILL REPORT TO DR. KATZ.
--- NOTE | 2023-04-03 07:40 | NUR ---
ABD ESTELITA UPDATED DR KATZ ON CHANGE IN COLOR/AMOUNT OF DRNG FROM LOWER ABD.
--- NOTE | 2023-04-03 08:25 | NUR ---
DR LANDY ORNELAS & ABD WOUND DRNG SHOWN. STILL w/ MODERATE AMOUNT PURULENT/MILKY/REDDISH DRNG.
--- NOTE | 2023-04-03 10:15 | NUR ---
TO CT SCAN VIA DANIEL
[2023-04-03 14:33] VITALS: BP 99/52
--- NOTE | 2023-04-03 17:12 | NUR ---
SHIFT SUMMARY ABD ESTELITA HAS SLOWED. CONT'S TO BE MILKY REDDISH; NO ODOR. DR KATZ IN THIS AFTERNOON TO REMOVE A FEW TAWANA ON BOTTOM PART OF INC. NEW GAUZE & TAPE APPLIED. PT's SPIRITS ARE BETTER THAN THIS MORNING; WAS INITIALLY VERY DISCOURAGED ABOUT FEELING LIKE HE TOOK A STEP BACK. R ARM CONT's TO BE SWOLLEN & RED ON FOREARM; DR BILL AWARE. ELEVATED ON 2 PILLOWS. SKIN GENERALLY WEEPY BLE. USES FLUTTER VALVE & IS FREQ & CORRECTLY w/o PROMPTING. COMPRESSION STOCKINGS ON FROM WOUND CARE CLINIC PT CANNOT TOLERATE SCD's DUE TO BLE ULCERS.
[2023-04-03 19:33] VITALS: BP 130/81
[2023-04-04 05:55] VITALS: BP 107/60
[2023-04-04 06:59] LABS: Hematocrit 27.5 % (37.0-53.0); Hemoglobin 8.6 g/dL (13.5-17.5); Mean Corpuscular HGB 30.3 pg (26.0-34.0); Mean Corpuscular HGB Conc 31.3 g/dL (31.5-36.5); Mean Corpuscular Volume 97 fL (80-100); Mean Platelet Volume 11.2 fL (9.1-12.4); Platelet Count 207 K/mm3 (150-400); RDW Coefficient Variation 16.2 % (11.7-14.2); RDW Standard Deviation 53.3 fL (35.1-46.3); Red Blood Cell Count 2.84 M/mm3 (4.30-5.90); White Blood Cell Count 9.84 K/mm3 (4.00-11.30)
[2023-04-04 07:06] VITALS: BP 137/96
[2023-04-04 07:15] LABS: Bun/Creatinine Ratio 27.3 (12.0-20.0); Creatinine, Blood 1.21 mg/dL (0.60-1.20); Potassium, Blood 4.2 mmol/L (3.5-5.5)
--- NOTE | 2023-04-04 07:23 | NUR ---
SHIFT SUMMARY ABD INCISION CONTINUES TO DRAIN, DRAINAGE BECOMING LESS RED AND MORE THICK WORRELL. DRESSING CHANGED 3X THIS SHIFT W/ LARGE AMTS OF DRAINAGE TO DRESSINGS. NEW ABX ORDERED AND CONTINUED OF FLAGYL AND LEVOQUIN. L UPPER ARM POWERGLIDE INTACT AND OFTEN POSITIONAL. CONTINUOUS O2 @2LNC, PT BECOMES WINDED W/ ACTIVITY. LUNGS COARSE W/ MINIMAL EXERSION IN COUGH, PT REPORTS USE OF IS. TELE IN PLACE W/ REPORTED 118/ AFLUTTER PER STOCK RANCH SUPERVISOR. OSTOMY LLQ, BAG CHANGED THIS SHIFT THAT CONTAINED MED AMT OF BLACK/BROWN STOOL. PT EDEMA CONTINUES TO WEAP FROM ARMS AND LEGS. COMPLETE BED BATH AND LINEN CHANGE TONIGHT. PT SLEPT WELL AND SNORING SEVERAL TIMES. PLANS FOR DISCHARGE TO REHAB, UNSURE OF WHEN R/T NEW ABDOMINAL DRAINAGE AND ABX. PT A&OX4, PLEASANT AND COOPERATIVE. CALL LIGHT W/IN REACH. BEDSIDE REPORT GIVEN TO ONCOMING NURSE.
[2023-04-04 14:25] VITALS: BP 97/61
--- NOTE | 2023-04-04 17:02 | NUR ---
SHIFT SUMMARY ALERT WHEN AWAKE AND ORIENTED. FATIGUED AND NAPS FREQUENTLY. WITHDRAWN BUT COOPERATIVE. 2L O2 VIA NC, SOB WITH MILD EXERTION LIKE ROLLING. TELE AFLUTTER IN 110'S. ABLE TO STAND FOR 20 SECONDS AT BEDSIDE WITH OT. GENERALIZED EDEMA IS IMPROVED, STILL SOME WEEPING TO ALL EXTREMETIES. DISPOSABLE PADS IN PLACE. TOLERATING REGULAR DIET AND LIQUIDS. USES URINAL, SMALL FORMED OUTPUT IN OSTOMY WITH GAS. APPLIACE CHANGED THIS AM. MIDLINE INCISION CONTINUES TO OOZE RED/WORRELL THICK DRAINAGE. [place] AND ABD PADS CHANGED FREQUENTLY PRN. POWERGLIDE TO PORFIRIO SALINE LOCKED EXCEPT FOR ROUTINE ABX. MEDICATED FOR PAIN PRN. VENOUS STASIS ULCERS TO BILAT LE DRESSING CHANGED TODAY BY HYDROLOGIST. PLAN IS FOR DISCHARGE TO [facility] WHEN MEDICALLY STABLE. DAUGHTER SHANELL IS ATTENTIVE AND HELPFUL.
--- NOTE | 2023-04-04 17:45 | NUR ---
ASSUMED CARE OF PT FROM STEFANIE Rangel RN. RESTING IN BED, DAUGHTER BEDSIDE. CALL LIGHT IN REACH.
[2023-04-04 19:39] VITALS: BP 93/66
[2023-04-04 21:06] VITALS: BP 121/88
[2023-04-05 02:28] VITALS: BP 92/63
[2023-04-05 04:58] LABS: Hematocrit 24.9 % (37.0-53.0); Hemoglobin 7.9 g/dL (13.5-17.5); Mean Corpuscular HGB 30.6 pg (26.0-34.0); Mean Corpuscular HGB Conc 31.7 g/dL (31.5-36.5); Mean Corpuscular Volume 97 fL (80-100); Mean Platelet Volume 10.9 fL (9.1-12.4); Platelet Count 192 K/mm3 (150-400); RDW Coefficient Variation 16.4 % (11.7-14.2); RDW Standard Deviation 54.4 fL (35.1-46.3); Red Blood Cell Count 2.58 M/mm3 (4.30-5.90); White Blood Cell Count 6.92 K/mm3 (4.00-11.30)
[2023-04-05 05:17] LABS: Bun/Creatinine Ratio 25.8 (12.0-20.0); Calcium, Blood 7.7 mg/dL (8.5-10.1); Creatinine, Blood 1.2 mg/dL (0.60-1.20); Potassium, Blood 4.5 mmol/L (3.5-5.5)
[2023-04-05 07:14] VITALS: BP 110/72
--- NOTE | 2023-04-05 07:20 | NUR ---
SUMMARY PT SLEPT OFF AND ON LAST NIGHT.APPEARS INC ESTELITA HAS SLOWED SOME.OSTOMY PATENT OF STOOL AND FLATUS.VOIDING.LABS NOTED AND DAY RN AGREES TO FOLLOW UP.
--- NOTE | 2023-04-05 09:40 | NUR ---
Spiritual Care Visit. Chaplain Thurman is the Pts. Electrician Substation Supervisor, and he asked this forest nursery supervisor to visit "[place]" while he was gone. Pt. is awake in bed when he welcomes my visit. Pt. displays evidence a solemn discouragement. Pt. verbalizes grief over the recent passing of his of 56+ years. Listen with empathy and a calming presence. Facilitated a life review. Pt. displays evidence of some depressing that impacts his motivation. Pastoral care and world travel counselor is given. Pt. verbalized that while he is not a spiritual person he welcomed prayer. [place] with Pt. Pt. verbalized gratitude for the spiritual care visit and welcomed vahe manzanares to return.
--- NOTE | 2023-04-05 11:18 | NUR ---
DR. BILL ROUNDED THIS AM. DISCUSSED POSSIBLE NEED FOR CHEST XRAY R/T INCREASED SHORTNESS OF BREATH WITH MILD ACTIVITY AND DIMINISHED BUT MOIST LUNG SOUNDS. DR. BILL IS AWARE OF LOW HGB.
[2023-04-05 15:21] VITALS: BP 115/62
--- NOTE | 2023-04-05 19:03 | NUR ---
SHIFT SUMMARY PT WAS ABLE TO GET TO THE CHAIR TODAY FOR LUNCH AND SAT UP FOR APPROXIMATELY 3 HOURS. PT TOLERATED OOB WELL BUT REQUIRED SABINAL LIFT TO GET BACK TO BED. HR INCREASES TO MID 120'S WITH ACTIVITY. PT IS SHORT OF BREATH WITH ACTIVITY, DR. BILL AWARE AND CHEST XRAY WAS COMPLETED TO DAY. PT IS WORKING WITH IS AND FLUTTER VALVE. ABD INCISION DRAINING MODERATE PURULENT DRAINAGE, DRESSING CHANGED TODAY. PT HAS A DECREASED APPETITE, DIETARY CONSULTED. PAIN MANAGED WITH OXY AND TYLENOL. PT RESTING IN BED WITH CALL LIGHT IN REACH AND HIS DAUGHTER AT THE BEDSIDE FOR SUPPORT.
[2023-04-05 19:23] VITALS: BP 128/66
[2023-04-06] VITALS (19 sets, daily range): BP systolic 117–146; BP diastolic 77–101
[2023-04-06 05:27] LABS: Hematocrit 26.2 % (37.0-53.0); Hemoglobin 8.2 g/dL (13.5-17.5); Mean Corpuscular HGB Conc 31.3 g/dL (31.5-36.5); Mean Corpuscular Volume 96 fL (80-100); Mean Platelet Volume 10.9 fL (9.1-12.4); Platelet Count 216 K/mm3 (150-400); RDW Coefficient Variation 16.7 % (11.7-14.2); RDW Standard Deviation 56.8 fL (35.1-46.3); Red Blood Cell Count 2.73 M/mm3 (4.30-5.90); White Blood Cell Count 6.61 K/mm3 (4.00-11.30)
[2023-04-06 05:44] LABS: Bun/Creatinine Ratio 24.8 (12.0-20.0); Creatinine, Blood 1.13 mg/dL (0.60-1.20); Potassium, Blood 4.1 mmol/L (3.5-5.5)
--- NOTE | 2023-04-06 14:02 | NUR ---
WOUND DEHISCENCE PT'S DAUGHTER TEETEE NOTIFIED THIS RN THAT INCISION SITE HAD INCREASED DRAINAGE. THIS RN WENT TO PT'S ROOM TO CHANGE THE DRESSING/EVALUATE THE WOUND. AT APPROXIMATELY 1325 PT WAS FOUND TO HAVE ABD WOUND DEHISCENCE OF 4-[address] KATZ NOTIFIED, HE REQUESTED THAT DR. ALDANA BE NOTIFIED. DR. ALDANA NOTIFIED AND ASSISTED TO TRANSFER PT BACK TO THE BED AND DRESSED THE WOUND WITH A MOIST DRESSING. PT'S DAUGHTER WAS AT THE BEDSIDE AND EMOTIONAL, PATORAL CARE CALLED FOR PATIENT. PT TAKEN BACK TO OR AT APPROXIMATELY 1415. OR CREW NOTIFIED THAT PT LAST ATE BETWEEN 1230 AND 1PM.
--- NOTE | 2023-04-06 14:23 | NUR ---
Spiritual Care Visit | Nurse Request Pt. is in bed being prepared for surgery by Dr. Bowles. Pts. daughter is present. Pt. displays evidence of discouragement of having to go back to surgery. Pt. also displays evidence of pain, and when is daughter asked, Pt. indicated it was a "3". Prayed with Pt. and daughter, and sat with them facilitating a life review with the daughter while the Pt. waited for transfer to Day Surgery. Escorted Pt. and daughter to Day Surgery holding area. Daughter verbalized gratitude for the spiritual care visit. Will remain available to Pt. and family.
--- NOTE | 2023-04-06 14:26 | NUR ---
POWERGLIDE IN LEFT UPPER ARM, SALINE LOCKED; PT HAD PRIOR TO DAY SURGERY.
--- NOTE | 2023-04-06 14:43 | NUR ---
PT TO DAY SURGERY FROM ROOM 217; BROUGHT TO DS VIA BED. ACCOMPANIED BY HIS DAUGHTER TEETEE. PT LAST ATE A FEW BITES OF LUNCH AT 1230. DR MALONEY AWARE OF PT HAVING LUNCH. PLAN OF CARE DISCUSSED WITH PT AND HIS DAUGHTER.
--- NOTE | 2023-04-06 14:49 | NUR ---
PT HAS C/D/I GUAZE THAT IS TAPED ON HIS LOWER ABD. PT HAS COLOSTOMY BAG. VOIDED IN URINAL.
--- NOTE | 2023-04-06 18:36 | NUR ---
Spiritual Care Follow Up Pt. has just returned from surgery. Daughter is present. Pt. verbalizes that he is sore. Pastoral encouragement is given. Pt. and daughter verbalize gratitude for the Spiritual Care visit.
[2023-04-07 00:11] VITALS: BP 109/64
[2023-04-07 00:12] VITALS: BP 109/64
--- NOTE | 2023-04-07 02:32 | NUR ---
THIS RN WAS NOTIFED BY CRUMB PACKER THAT PT HR IN THE 30S. THIS RN ROUNDED ON PT IMMEDIATELY AND PT WAS UNRESPONSIVE. ATTEMPTED TO TAKE VS, BUT NO BP PRESENT. NO PULSE FELT AND NO RESPIRATIONS SEEN OR HEARD. PT NOTED TO BE A DNR CODE STATUS. VERIFIED WITH SECOND RN. NURSING SUPPLY OFFICER NOTIFIED AND NOTIFIED FAMILY OF PT'S .
--- NOTE | 2023-04-07 03:09 | NUR ---
Call back - Pt's daughter Vaishali was in room, tearful. Condolences given and space provided for her to reminisce on her dad's life. Pt has had multiple losses in the past month, losing her mother to cancer. Vaishali able to verbalize support from friends in the area she lives ([place]). A supplication was supplied for peace and comfort. Vaishali was grieving appropriately and verbalized gratitude for the interventions rendered.
== END 2023-04-07 04:06 | DRG 853 ==
LOC: ER 09:59 → MEDS 10:00 → ICUE 12:50 → SURS 12:50 → MEDS 14:26 → ICUE 03-23 17:33 → SURS 03-24 17:17 → PCU 03-28 09:01 → SURS 03-30 16:02
PROVIDERS: Family Medicine; Internal Medicine; Internal Medicine Critical Care Medicine; Student in an Organized Health Care Education/Training Program; Surgery; ADMIT Hospitalist
PROC: 3E03329 Introduction of Other Anti-infective into Peripheral Vein, Percutaneous Approach (ICD-10-PCS; 2023-03-20)
PROC: 0D1M0Z4 Bypass Descending Colon to Cutaneous, Open Approach (ICD-10-PCS; 2023-03-23)
PROC: 0T9B70Z Drainage of Bladder with Drainage Device, Via Natural or Artificial Opening (ICD-10-PCS; 2023-03-23)
PROC: 5A1935Z Respiratory Ventilation, Less than 24 Consecutive Hours (ICD-10-PCS; 2023-03-23)
PROC: 0DBN0ZZ Excision of Sigmoid Colon, Open Approach (ICD-10-PCS; principal; 2023-03-23 15:30)
PROC: 0WQF0ZZ Repair Abdominal Wall, Open Approach (ICD-10-PCS; 2023-04-06)
DX: A41.9 Sepsis, unspecified organism (principal); J18.9 Pneumonia, unspecified organism; J96.21 Acute and chronic respiratory failure with hypoxia; J96.22 Acute and chronic respiratory failure with hypercapnia; N17.9 Acute kidney failure, unspecified; J44.1 Chronic obstructive pulmonary disease with (acute) exacerbation; I47.1 Supraventricular tachycardia; J44.0 Chronic obstructive pulmonary disease with (acute) lower respiratory infection; J98.11 Atelectasis; I48.92 Unspecified atrial flutter; I82.611 Acute embolism and thrombosis of superficial veins of right upper extremity; T81.31XA Disruption of external operation (surgical) wound, not elsewhere classified, initial encounter; K94.01 Colostomy hemorrhage; K56.7 Ileus, unspecified; I48.19 Other persistent atrial fibrillation; K57.20 Diverticulitis of large intestine with perforation and abscess without bleeding; Z66 Do not resuscitate; Z51.5 Encounter for palliative care; K21.9 Gastro-esophageal reflux disease without esophagitis; T50.2X5A Adverse effect of carbonic-anhydrase inhibitors, benzothiadiazides and other diuretics, initial encounter; E86.0 Dehydration; I25.2 Old myocardial infarction; I12.9 Hypertensive chronic kidney disease with stage 1 through stage 4 chronic kidney disease, or unspecified chronic kidney disease; D18.01 Hemangioma of skin and subcutaneous tissue; I95.9 Hypotension, unspecified; F10.90 Alcohol use, unspecified, uncomplicated; M06.9 Rheumatoid arthritis, unspecified; R60.0 Localized edema; E87.6 Hypokalemia; R00.1 Bradycardia, unspecified; R54 Age-related physical debility; D63.1 Anemia in chronic kidney disease; N18.30 Chronic kidney disease, stage 3 unspecified; D72.829 Elevated white blood cell count, unspecified; Y83.8 Other surgical procedures as the cause of abnormal reaction of the patient, or of later complication, without mention of misadventure at the time of the procedure; Z98.1 Arthrodesis status; Z98.890 Other specified postprocedural states; Z87.891 Personal history of nicotine dependence; Z88.0 Allergy status to penicillin; Z88.8 Allergy status to other drugs, medicaments and biological substances; Z79.52 Long term (current) use of systemic steroids; Z79.51 Long term (current) use of inhaled steroids; Z79.899 Other long term (current) drug therapy; Z91.038 Other insect allergy status; Z99.81 Dependence on supplemental oxygen
CPT/HCPCS: 36415; 71045; 71046; 74019; 74176; 74177; 80048; 80053; 80069; 81001; 82728; 82803; 82947; 83540; 83550; 83605; 83735; 83880; 85014; 85018; 85025; 85027; 85520; 85610; 85730; 87086; 88307; 93005; 93010; 93971; 94002; 94003; 94640; 94644; 94664; 94760; 94762; 96360; 96361; 97110; 97116; 97162; 97165; 97530; 97533; 97535; 99285-25; A9270; C1751; J0282; J0456; J1100; J1160; J1170; J1644; J1650; J1720; J1940; J1956; J2185; J2250; J2371; J2405; J2704; J2920; J2930; J3010; J3475; J3480; J7030; J7040; J7050; J7060; J7120; J7512; Q9967